=== PATIENT | male | born 1935 | race Caucasian/White ===

== ENCOUNTER 2022-02-17 17:38 | Observation (INO) | payer MEDICARE ==
[~2022-02-17] VITALS: Ht 172.7 cm; Wt 92.9 kg
[2022-02-18 10:19] LABS: U Amphetamine Screen Not Detected; U Barbituate Screen Not Detected; U Benzodiazapine Screen Not Detected; U Buprenorphine Screen Not Detected; U Cannabinoids Screen Not Detected; U Cocaine Screen Not Detected; U Methadone Screen Not Detected; U Methamphetamine Screen Not Detected; U Opiates Screen Not Detected; U Oxycodone Screen Not Detected; U Phencyclidine Screen Not Detected; U Propoxyphene Screen Not Detected
[2022-02-18 10:34] LABS: BASOPHILS ABSOLUTE AUTO 0.05 K/mm3 (0.00-0.23); BASOPHILS PERCENT AUTO 1 % (0-2); EOSINOPHILS ABSOLUTE AUTO 0.09 K/mm3 (0.00-0.68); EOSINOPHILS PERCENT AUTO 2 % (0-6); Hematocrit 46.6 % (37.0-53.0); Hemoglobin 15.8 g/dL (13.5-17.5); IMMATURE GRAN ABSOLUTE AUTO 0.01 K/mm3 (0.00-0.10); IMMATURE GRAN PERCENT AUTO 0 % (0-1); LYMPHOCYTES ABSOLUTE AUTO 2.21 K/mm3 (0.84-5.20); LYMPHOCYTES PERCENT AUTO 39 % (21-46); MONOCYTES ABSOLUTE AUTO 0.56 K/mm3 (0.16-1.47); MONOCYTES PERCENT AUTO 10 % (4-13); Mean Corpuscular HGB 29.1 pg (26.0-34.0); Mean Corpuscular HGB Conc 33.9 g/dL (31.5-36.5); Mean Corpuscular Volume 86 fL (80-100); Mean Platelet Volume 10.3 fL (9.1-12.4); NEUTROPHILS PERCENT AUTO 49 % (41-73); Platelet Count 222 K/mm3 (150-400); RDW Coefficient Variation 13.2 % (11.7-14.2); RDW Standard Deviation 40.6 fL (35.1-46.3); Red Blood Cell Count 5.43 M/mm3 (4.30-5.90); White Blood Cell Count 5.72 K/mm3 (4.00-11.30)
[2022-02-18 10:37] LABS: Influenza A, PCR NEGATIVE (NEGATIVE); Influenza B, PCR NEGATIVE (NEGATIVE); Resp Syncytial Virus, PCR NEGATIVE (NEGATIVE); SARS-Cov-2 (COVID-19) PCR, MMC NEGATIVE (NEGATIVE)
[2022-02-18 11:21] LABS: Ethanol (Alcohol), Blood, Med <3 mg/dL; Salicylate <1.7 mg/dL (2.8-20.0); Thyroid Stimulating Hormone 0.837 uIU/mL (0.360-4.800)
[2022-02-18 11:24] LABS: Acetaminophen, Random <2.0 ug/mL (10.0-30.0); Alanine Aminotransfer (ALT/SGP 25 U/L (12-78); Albumin, Blood 3.4 g/dL (3.4-5.0); Alk Phos 78 U/L (50-136); Anion Gap 8 mmol/L (6-16); Aspartate Aminotrans (AST/SGOT 23 U/L (12-37); Bilirubin, Total 0.6 mg/dL (0.1-1.0); Blood Urea Nitrogen 23 mg/dL (8-24); Bun/Creatinine Ratio 27.8 (12.0-20.0); CO2, Blood 25 mmol/L (21-32); Calcium, Blood 9.2 mg/dL (8.5-10.1); Chloride, Blood 108 mmol/L (98-108); Creatinine, Blood 0.83 mg/dL (0.60-1.20); Globulin, Blood 3.5 g/dL (2.2-4.0); Glomerular Filtration Rate 86 (60-); Glucose, Blood 110 mg/dL (70-99); Potassium, Blood 3.8 mmol/L (3.5-5.5); Sodium, Blood 141 mmol/L (136-145); Total Protein, Blood 6.9 g/dL (6.4-8.2)
--- NOTE | 2022-02-19 17:50 | NUR ---
[facility] CALLED WITH PHONE NUMBERS FOR EMERGENCY CONTACT INFORMATION THEY HAD ON FILE. FIORDALIZA (SON) [phone] DELILAH CANADA (FRIEND IN [place]) [phone] [facility] ALSO GAVE PHONE NUMBER FOR [facility] SUGGESTING THAT THEY MAY BE ABLE TO ASSIST IN FINDING [facility] FAC[facility] AND TRANSPORT TO THEIR LOCATION OR A [facility] FACILITY IN THEIR AREA. [phone] PHONE NUMBERS ALSO PLACED ON FRONT OF CHART.
--- NOTE | 2022-02-19 19:25 | NUR ---
SHIFT SUMMARY PATIENT ADMITTED FROM ER, MEDICALLY STABLE BUT FAMILY HAS ABANDONED PATIENT AT FACILITY. POLICE CAME TO SPEAK TO PATIENT AND ARE ASSISTING IN FINDING PLACEMENT FOR PATIENT APS IS CLOSED. PATIENT IS INDEPENDENT IN ROOM. ON RA. NOTED A WOUND ON TOP OF LEFT BIG TOE AND REDNESS TO TOPS OF TOES ON BOTH FEET. PATIENT HAS MILD DEMENTIA, ASKING SAME QUESTIONS MULTIPLE TIMES BUT AWARE OF WHAT IS GOING ON. REPORT GIVEN TO ONCOMING RN.
--- NOTE | 2022-02-20 03:00 | NUR ---
SHELL REPRINT OPERATOR SUMMARY WAS JOKING WITH STAFF AT SHIFT COMMENCE. DENIED PAIN AND LOSS OF FEELING. NOTE SOME APPARENT FORGETFULNESS, BUT ANSWERED QUESTIONS APPROPRIATELY. HAS BEEN RESTING QUIETLY WITHOUT NOTED DISTRESS THROUGH OUT SHIFT. CALL LIGHT IN REACH
--- NOTE | 2022-02-20 07:24 | NUR ---
ASSUMED CARE AT 0700. REPORT RECEIVED. CHART REVIEWED. PER RECORD, PATIENT MAY HAVE BEEN ABANDONED. CALL PLACED TO [facility]. PATIENT IS 100% SERVICE CONNECTED. HE IS NOT BEING CONSIDERED FOR INPATIENT PSYCH PLACEMENT AT THE [place]. PATIENTS SON [place] HAS PREVIOUSLY REFUSED TO BATCH MAKER PATIENT. CONTAT NUMBERS FOR HIM ARE NOTED TO BE [phone], . WILL CONT TO MONITOR.
--- NOTE | 2022-02-20 11:32 | NUR ---
CONVERSATION WITH PATIENT AT THE BEDSIDE. PATIENT STATES THAT HE IS "WORRIED" THAT HE "WILL HAVE TO LIVE IN PLACE I DONT WANT TO." HE STATES THAT HE LIVES IN A [address] WITH HIS SON EDGAR. EXPLAINED TO PATIENT THAT AT THIS TIME, EDGAR IS NOT RETURNING THE HOSPITALS CALLS. PATIENT INFORMED THAT HE IS NOT SICK AND DOES NOT NEED TO BE IN THE HOSPITAL. WE TALKED ABOUT THE POSSIBLE NEED TO MOVE INTO A HOME THAT WILL HAVE PEOPLE AVAILABLE IF HE NEEDS HELP. 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 ALSO THAT EDGAR PURCHASES HIM THINGS HE NEEDS SUCH SHOES. REVIEWED CONVERSATION WITH HOSPITALIST. SOCIAL WORK CONSULT PLACED. WILL ATTEMPT TO REACH EDGAR TODAY ALSO. WILL CONT TO MONITOR
--- NOTE | 2022-02-20 18:15 | NUR ---
SHIFT SUMMARY NO ACUTE CHANGES THIS SHIFT. PATIENT IS ALERT AND ORIENTED X2-3. HE IS VERY ANXIOUS ABOUT HIS FINANCES. HE IS INDEPENDENT IN HIS ROOM. PATIENT IS COOPERATIVE WITH CARE AND REQUESTS FROM NURSING STAFF. HE IS ABLE TO MAKE HIS NEEDS KNOWN. WILL CONT TO MONOTOR UNTIL REPORT GIVEN TO LEGAL NURSE CONSULTANT.
--- NOTE | 2022-02-21 04:18 | NUR ---
CEMENTER HELPER SUMMARY NO REPORTS OF VERTIGO. AFFECT AND INTERACTIONS WITH STAFF PLEASANT AND COOPERATIVE. VSS. HAS BEEN RESTING QUIETLY WITH FEW INTERRUPTIONS SINCE HS. CALL LIGHT IN REACH. AM NURSE SUGGESTED OT EVAL RE COGNITIVE SCREEN IN THE AM. WILL PASS THIS ON TO AM RN FOR FOLLOW UP.
--- NOTE | 2022-02-21 13:41 | NUR ---
SHIFT SUMMARY PT AWAKE AT START OF SHIFT, DURING SHIFT REPORT. UP INDEPENDENTLY IN RM AND TO BTHRM. PT LATER AMBULATING OUT TO FLANNERY AND SITTING IN CHAIR. PT IS A&O X2. PT WANTING TO GO HOME AND ALSO WANTING TO CALL MACHINE PULLER OVER THAT CAME TO VISIT HIM. PT REPORTS BEING HERE FOR 8 DAYS ALREADY, BUT JUST CAME IN 1 1/[address] GARCÍA HERE THIS AM TO SEE PT AND DISCUSS PLAN OF CARE, ACCOUNTING TUTOR ALSO NOTIFIED THAT PT WANTING TO GO HOME AND FIND HIS WALLET. ACCOUNTING TUTOR TO ATTEMPT TO CONTACT SON SOON. PT MEDICALLY STABLE, WAITING SAFE DISCHARGE PLANNING. CALL LT IN REACH.
--- NOTE | 2022-02-21 19:14 | NUR ---
AWAKE. USED CALL LIGHT FOR ASSISTANCE TO GO TO THE BATHROOM TO VOID. ACCOMPANIED TO AND FROM BR USING WALKER. CALL LIGHT IN REACH.
--- NOTE | 2022-02-22 03:43 | NUR ---
MARKETING COMMUNICATIONS LEADER SUMMARY AWAKE AT , AGREED TO USE CALL LIGHT IF NEEDING TO GET OUT OF BED. HE DID USE CALL LIGHT. NO FURTHER APPARENT EPISODES OF VERTIGO. USING WALKER WHEN OOB. HAS BEEN RESTING QUIETLY WITH FEW INTERRUPTIONS SINCE. CALL [facility] IN REACH. SCHEDULED TO BE DISCHARGED LATER IN THE AFTERNOON TODAY.
--- NOTE | 2022-02-22 13:42 | NUR ---
SHIFT SUMMARY PT RESTING QUIETLY AT START OF SHIFT. UP TO BTHRM USING FWW AND SBA BEFORE BREAKFAST. PT THEN UP TO CHAIR FOR A WHILE, WAITING FOR SON TO COME IN OR CALL. PT LATER TOOK A NAP. WOKE FOR LUNCH, BUT DECLINED TO EAT. PT REPORTED "SOUR STOMACH"; DR GARCÍA NOTIFIED FOR TUMS. PT REPORTED THEM EFFECTIVE. PT IS ANXIOUSLY WAITING FOR SON TO CALL OR COME IN TO PICK HIM UP AND TAKE HIM HOME. PT IS MEDICALLY STABLE, JUST WAITING FOR D/C. DAVIDSON FROM [facility]PS CALLED THIS AM TO F/U ON ABANDONMENT REPORT. DAVIDSON TO CALL SON FOR INFORMATION. PT DENIES FURTHER NEEDS AT THIS TIME. CALL LT IN REACH.
[2022-02-22] MEDS ORDERED: Acetaminophen650 M1 PO (16:40)
[2022-02-22] MEDS ORDERED: Prinivil10 MG PO (16:41)
[2022-02-22] MEDS ORDERED: Calcium Carbon500 MG PO (16:41)
--- NOTE | 2022-02-22 21:49 | NUR ---
DARCY GUERRERO, VOICED CONCERNS THAT HIS SON IS TAKING HIS MONEY AND WANTS TO MOVE "TO [place]" SO HE COULD BE FAR ENOUGH AWAY FROM HIM TO BE ABLE TO KEEP THEM . I EXPLAINED THAT I WOULD ASK AM RN/STAFF TO SPEAK WITH HIM RE HIS REQUESTS SO THEY COULD GET HIS INPUT FOR DISCHARGE. CALL LIGHT IN REACH
--- NOTE | 2022-02-23 03:37 | NUR ---
NEGATIVE DEVELOPER SUMMARY WAS SCHEDULED TO BE DISCHARGED YESTERDAY, BUT EVIDENTLY ACCORDING TO AM RN, THE RIDE DIDNT SHOW UP. (ORDERS FOR DC IN CHART). ON Q SHIFT ASSESSMENT OF PT, HE VOICED THAT HE DIDNT WANT TO BE DISCHARGED TO HIS SON, THAT HE FELT HIS SON WAS TAKING MONEY FROM HIM AND HE WANTED TO MOVE TO [place] WHEN DISCHARGED, THAT HE COULD BE FAR ENOUGH AWAY FROM HIM SO HE WOULDNT HAVE THE POSSIBILITY OF RUNNING INTO HIM AFTER THAT. CHARGE NURSE NOTIFIED AND NOTE PLACED FOR DC TEAM TO FOLLOW UP WITH HIM. HAS BEEN RESTING QUIETLY WITH FEW INTERRUPTIONS SINCE. CALL LIGHT IN REACH. NO EPISODES OF VERTIGO REPORTED.
--- NOTE | 2022-02-23 15:58 | NUR ---
PT IS ALERT, PLEASANTLY CONFUSED, ORIENTED TO SELF AND SURROUNDINGS. THE PT IS UP WITH ASSIST USEING THE FWW. THE PT DENIED ANY PAIN. THE PT WAS ASSISTED WITH AMBULATION IN THE FLANNERY TODAY. PT APPEARS TO BE BREATHING EASILY ON RA AT THIS TIME. ADULT FAMILY PROTECION SERVICES AGENT WAS IN TO SEE AND SPOKE WITH THE PATIENT. PT IS UP SITTING IN A CHAIR IN THE HALLWAY AT THIS TIME. WILL CONTIUE TO MONITOR AND ASSESS FOR CHANGES
--- NOTE | 2022-02-24 03:59 | NUR ---
SHIFT SUMMARY PT COOPERATIVE AND PLEASANT. PT SLEEPING THROUGH MOST OF THE NIGHT. NO ACUTE CHANGES TO PT CONDITION AND NO COMPLAINTS FROM PT AT THIS TIME. CALL LIGHT IS WITHIN PT REACH.
--- NOTE | 2022-02-24 16:55 | NUR ---
PT IS A/OX3, PLEASANT AND COOPERATIVE. THE PT IS UP WITH MINIMAL ASSIST TO THE BATHROOM AND OUT INTO THE FLANNERY. THE PT HAS BEEN UP AMBULATING INTO THE FLANNERY SEVERAL TIMES TODAY. PT APPEARS TO BE BREATHING EASILY ON RA. PT IS CAREFULL WHEN GETTING UP AND KNOWS HIS LIMITS. THE PT IS CONCERNED ABOUT HIS LENGTHY STAY AT THE HOSPITAL SO FAR AND HAS STATED THAT HE FEELS LIKE HE IS IN ALF AND MAY WELL KILL HIMSELF, HOWEVER, AFTER TALKING WITH HIM HE ALSO STATES THAT HE HAS NO SUICIDAL THOUGHTS WELL. THE PTS FAMILY HAS NOT MADE CONTACT WITH HIM TODAY. THE PT IS UP IN THE CHAIR OUT IN THE FLANNERY AT THIS TIME. WILL CONTINUE TO MONITOR AND ASSESS FOR CHANGES
--- NOTE | 2022-02-24 19:45 | NUR ---
REPORT FROM DAY SHIFT IS PT HAS A POOR APPETITE, HOWEVER RIKA GURROLA REPORTED PT HAD AN ENSURE TODAY (NOT CHARTED.) PT REPORTS ABDOMINAL DISCOMFORT - REPORTS NO REQUEST FOR MEDICATIONS, OR WANTING ANY PO FLUIDS/FOOD AT THIS TIME. BT'S ACTIVE X4. WILL CONTINUE TO MONITOR UNTIL AM SHIFT CHANGE.
--- NOTE | 2022-02-24 23:00 | NUR ---
PT REPORTS RELIEF OF INDIGESTION, ABDOMINAL DISCOMFORT - PT CONTINUES TO DECLINE PO FLUIDS/FOOD.
--- NOTE | 2022-02-25 01:10 | NUR ---
PT NEEDS 1 PERSON ASSIST FROM SIT TO STAND WITH WALKER, BUT AMBULATES WELL ONCE STANDING. PT TO BRP WITH WALKER AND SBA.
--- NOTE | 2022-02-25 04:16 | NUR ---
SHIFT SUMMARY - NO ACUTE CHANGES THROUGHOUT THIS SHIFT. PT DECLINED PO INTAKE OFFERRED THROUGHOUT THE NIGHT. PT MEDICATED X1 WITH TUMS - PT REPORTED RELIEF OF INDIGESTION/ABDOMINAL DISCOMFORT AFTER TUMS GIVEN. WILL REPORT THIS ABOVE INFORMATION TO ONCOMING SHIFT - DUE TO POOR PO INTAKE. PT HAS BEEN APPROPRIATE IN HIS BEHAVIOR WITH STAFF. PT IS STEADY WITH A WALKER. PT NEEDS ASSISTANCE FROM SITTING IN BED TO STANDING, BUT IS ABLE TO STAND INDEPENDENTLY FROM BRP TO STANDING WITH USE OF THE WALKER. PT HAS BEEN PLEASANT AND COOPERATIVE WITH CARE. BED ALARM ON FOR SAFETY. FLUIDS AT BEDSIDE. CALL LIGHT WITHIN REACH. WILL CONTINUE TO MONITOR UNTIL AM SHIFT.
--- NOTE | 2022-02-25 16:27 | NUR ---
SHIFT SUMMARY- PT ALERT AND ORIENTED X2. PT IS A 1PA TO THE BATHROOM. NO IV ACCESS OORDR IN PLACE, AL VSS. PT JUST AWAITING PLACEMENT. PT IN BED, CALL LIGHT IN REACH, NO S&S OF DISTRESS NOTED, NO ACUTE CHANGS T/O THE SHIFT. ATTENDS IN PLACE FOR OCCASSIONAL INCONTINENCE. WILL CTM AND PASS ON TO NIGHT RN IN BEDSIDE REPORT. BED AND CHAIR ALARM ON FOR SAFETY.
--- NOTE | 2022-02-26 05:11 | NUR ---
SHIFT SUMMARY PATEINT ALERT AND ORIENTED X2-3. MEDICATED PER EMAR FOR HEADACHE. PATIENT REMAINS FORGETFUL AND IS NOT APPROPRIATE WITH USE OF CALL LIGHT. NO ACUTE ISSUES NOTED OVERNIGHT. BED IN LOWEST POSITION WITH WHEELS LOCKED AND ALARM ON. CALL LIGHT WITHIN REACH. REPORT GIVEN TO ONCOMING RN.
--- NOTE | 2022-02-26 17:20 | NUR ---
SHIFT SUMMARY- PT HAS HAD NO ACUTE CHANGES T/O THE SHIFT. MEDICATED THIS MORNING FOR A HEADACHE THAT SEEMS TO HAVE RESOLVED. PT HAS DENIED PAIN SINCE THEN. PT IS A 1PA TO THE BATHROOM FOR STABILITY AND SAFETY. NO S&S OF DISTRESS AT THIS TIME. WILL CTM AND PASS ON TO NIGHT RN IN BEDSIDE REPORT.
--- NOTE | 2022-02-27 05:57 | NUR ---
SHIFT SUMMARY PATIENT IS ALERT AND ORIENTED X2-3. HAD NO COMPLAINTS OF PAIN OR SHORTNESS OF BREATH. NO ACUTE ISSUES NOTED OVERNIGHT. CALL LIGHT WITHIN REACH. REPORT GIVEN TO ONCOMING RN.
--- NOTE | 2022-02-27 17:01 | NUR ---
SHIFT SUMMARY- PT HAS HAD NO ACUTE CHANGES T/O THE SHIFT. PT STILL AWAITING DISCHARGE PLACEMENT. PT HAD A FULL SHOWER TODAY, AND CONTINUES TO HAVE OCCASSIONAL INCONTINENCE ISSUES. PT IS IMPULSIVE AND FORGETS TO CALL FOR ASSISTANCE (ALTHOUGH HE HAS IMPROVED OVER TE PAST THREE DAYS, HE DOES OCCASSIONALLY CALL), BED AND CHAIR ALARMS ARE STILL BEING USED FOR PT SAFETY. PT CURRENTLY IN BED, RIGO LIGHT IN REACH NO S&S OF DISTRESS. WILL CTM AND PASS ON TO NIGHT RN IN BEDSIDE REPORT.
--- NOTE | 2022-02-28 06:11 | NUR ---
SHIFT SUMMARY PATIENT ALERT AND ORIENTED X3. HAD NO COMPLAINTS OF PAIN OR SHORTNESS OF BREATH. NO ACUTE ISSUES NOTED OVERNIGHT. CALL LIGHT WITHIN REACH. REPORT GIVEN TO ONCOMING RN.
--- NOTE | 2022-02-28 16:51 | NUR ---
DAY SHIFT SUMMARY 86 YR OLD MALE PT WITH AMS, TLINGIT & HAIDA, WAITING FOR PLACEMENT. BED ALARM ON, ABLE TO USE URINAL INDEPENDENTLY, STANDBY ASSIST WITH WALKER TO BATHROOM. ABLE TO TAKE MEDS WHOLE, RA, NO IV. NO ACUTE CHANGES THIS SHIFT. CALL LIGHT WITHIN REACH.
--- NOTE | 2022-03-01 04:04 | NUR ---
SHIFT SUMMARY A/O 2-3, 1P ASSIST WITH FWW TO BATHROOM. IMPULSIVE AT TIMES, EASILY REDIRECTED. C/O PAIN TO L. HIP, MEDICATED PER EMAR. DENIES SOB. SLEPT T/O THE NIGHT. VSS, NO ACUTE CHANGES AT THIS TIME. BED IN LOWEST POSITION WITH CALL LIGHT IN REACH. WILL CONTINUE TO MONITOR AND REPORT TO ONCOMING RN.
--- NOTE | 2022-03-01 16:55 | NUR ---
DAY SHIFT SUMMARY 86 YR OLD MALE PT WITH AMS AND DEMENTIA. FIXATED TODAY ON HIS CHECK GOING INTO THE WRONG ACCOUNT AT START OF MONTH. PT HAS CARD FOR [employer] NUMBER TO CALL. WILL RELAY MESSAGE FOR TOMORROW'S NURSE TO HELP PT CALL EARLIER IN DAY. NO ACUTE CHANGES THIS SHIFT. FALL RISK, RA, MEDS WHOLE, CONTINENT, BED ALARM. CALL LIGHT WITHIN USE AND PT ABLE TO USE.
--- NOTE | 2022-03-02 04:08 | NUR ---
SHIFT SUMMARY ADMITTED FOR AMS. FULL CODE. PLAN IS FOR PLACEMENT. PT IS IMPULSIVE AND EXITS THE BED FREQUENTLY. BED ALARM ACTIVE. CALL BUTTON WITHIN REACH. HX OF FALLS. 1 ASSIST W/FWW-BRP. [facility] SOFT/GRND MEAT DIET. ON RA.
--- NOTE | 2022-03-02 18:07 | NUR ---
SUMMARY- PT A/O X3, PLEASANTLY CONFUSED. FORGETFUL. USING BED AND CHAIR ALARM. AMBULATES TO BATHROOM TO VOID. TOLERATING FOOD AND FLUID. GETS UP IN THE CHAIR FOR MEALS. NO BM DINVR 02/26, MEDICATED SENAKOT AND MOM. NO VIOLENCE TOWARDS STAFF TODAY. WILL REPORT TO NOC RN
--- NOTE | 2022-03-03 04:04 | NUR ---
SHIFT SUMMARY: PATIENT IS A&O TO SELF AND PLACE. CALLING APPROPRIATELY FOR ASSIST OOB. VSS, REPORTING HEADACHE, TYLENOL WAS GIVEN WITH FAIR EFFECT. BED ALARM IS ON.
--- NOTE | 2022-03-03 16:24 | NUR ---
SUMMARY- PT ALERT TO SELF AND PLACE. ABLE TO GET UP SBA TO CHAIR AND BATHROOM SBA. FREQ SETS OFF BED ALARM AND CHAIR ALARM GETTING UP WITHOUT USING CALL LIGHT DESPITE FREQ REMINDERS. HAD LG SOFT BM TODAY AFTER LAXATIVES THIS AM. MEDICALLY STABLE AND PENDING PROPER PLACEMENT. CONSULT DR CHEUNG FOR EMERGENCY GAURDIANSHIP. PT HAS DELUSIONS THAT STEP SON AMERICA IS STEALING MONEY FROM HIS BANK. PHLEBOTOMY INSTRUCTOR LIESTH STATES AMARI FROM ADULT PROTECTIVE SERVICE IS FULLY AWARE OF HIS CONCERNS AND ALL IS UNFOUNDED, HIS STEP SON IS NOT STEALING MONEY FROM HIM. SPOKE TO PT AND ASSURED HIM HIS MONEY IS SECURE.
--- NOTE | 2022-03-04 05:04 | NUR ---
SHIFT SUMMARY: PATIENT IS A&O TO SELF AND SURROUNDINGS. VSS, NO REPORTS OF PAIN OR DISCOMFORT. GOOD APPETITE, SLEPT WELL AND IS INC. AT TIMES BUT ALSO USES URINAL INDEPENDANTLY. BED ALARM IS ON.
--- NOTE | 2022-03-04 10:54 | NUR ---
PT PLEASANT THIS AM. VERY [place]. A/O TO SELF, TALKATIVE. 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 LOVED THAT JOB. ALSO WAS IN . THANKED HIM FOR HIS SERVICE. DENIES PAIN. H/R REG, NO MURMUR NOTED. NO TELE. LUNGS CLEAR, RESP EASY, UNLABORED. ON R.A. BT X4 LAST BM YEST PER PT. VOIDS URINAL. SBA WITH FWW TO BATHROOM. BED IN LOW POSITION, CALL LITE IN REACH, BED ALARNM ON FOR SAFETY. PT HERE WITH AMS AND PLACEMENT.
--- NOTE | 2022-03-04 15:26 | NUR ---
PT B/P ELVATED 170/82 P 71. HE STATES NO PAIN. HOWEVER STATES STILL SOME ANX OVER MONEY ISSUES. STATES BETTER THIS AFT AFTER TALKING TO YIMI ROD GUARDIANSHIP. CALLED RASHAWN DORSEY IN HALF HOUR, CALL IF STILL ELEVATED.
--- NOTE | 2022-03-04 15:57 | NUR ---
YIMI NASH, GUARDIAN, STOPPED BY TO INTERVIEW PT. SHE REQUESTING PAPER FROM DR MCKEON STATING NEED. SPOKE TO DR MCKEON, HE TO SEE PT TODAY AND WILL CONTACT HER NEED.
--- NOTE | 2022-03-04 16:18 | NUR ---
PT BP ELEVATED STILL. 185/[address] STILL. ADVISED HAS BEEN URINATING TODAY. AT LEST 4-5 TIMES. SHE REQUESTED BLADDER SCAN. ALSO ORDRS FOR HYDRALAZINE 10 MG PO Q6P. DONE
--- NOTE | 2022-03-04 16:22 | NUR ---
BLADDER SCAN. POST VOID 125 CC
--- NOTE | 2022-03-04 18:49 | NUR ---
AIR CHIEF MARSHAL CONSULT. ORDERED BY DR MCKEON. I CALLED CARE MANAGEMENT AND LEFT MS REQUEST TO FOLLOW.
--- NOTE | 2022-03-04 19:14 | NUR ---
PT HAD SOME HYPERTENSION THIS AFT. DR WAS CALLED AND HYDRAL ADMIN. PT BP RESOLVED. PT ALSO HAD HEADACHE THIS ALEXIS TYLENOL ADMIN. PT HAD VISITOR FOR GUARDIANSHIP ASSISTANCE THIS AM. HE PLEASED ABOUT THIS. NO NEWCONCERNS NOTED . BED IN LOW POSITION, CALL LITE IN REACH, CALLS APPROP
--- NOTE | 2022-03-05 04:26 | NUR ---
SHIFT SUMMARY 86 YR M ADMITTED ON 02/17/22 FOR AMS. FULL CODE. NO ACUTE CHANGES THIS SHIFT. PT IS VERY PLEASANT AND COOPERATIVE WITH CARE. HE IS VERY HARD OF HEARING BUT HE LIKES TO JOKE AROUND. WE HAD SOME LAUGHS THIS SHIFT. HE C/O FORRESTER AT APPROX 0230 AND WAS GIVEN TYLENOL PER EMAR. AWAITING PLACEMENT.
--- NOTE | 2022-03-05 09:51 | NUR ---
PT QUITE PLEASANT TODAY. DENIES PAIN. STATES PERSON HERE YEST THAT IS HELPING HIM WITH FINANCES GREATLY HELPED HIS MOOD. UNABLE TO ANSWER DETAIL QUEESTIONS. HOWEVER ABLE TO TELL ME YR, , FAMILY. AND HIS JOB. H/R REG, NO MURMUR NOTED. NO TELE. LUNGS CLEAR RESP EASY, UNLABORED, ON R.A. BT X4 LAST BM YEST, VOIDS URINAL AND SBA WITH FWW TO BATHROOM. BED IN LOW POSITION, CALL LITE IN REACH. BED ALARM ON FOR SAFETY
--- NOTE | 2022-03-05 17:40 | NUR ---
PT QUITE PLEASANT TODAY. NO C/O PAIN. CONTINUES TO BE UNABLE TO ANSWER DETAILED QUESTIONS. GENERAL QUESTIONS ARE PRETTY GOOD. EXPECTING TO HAVE NEW HELPER, YIMI?, BRING HIM HIS BIBLE. NO OTHER CONCERNS NOTED. BED IN LOW POSITION,, CALL LITE IN REACH. BED ALARM ON FOR SAFETY
--- NOTE | 2022-03-06 04:49 | NUR ---
SHIFT SUMMARY 86 YR M ADMITTED ON 02/17/22 FOR AMS. FULL CODE. NO ACUTE CHANGES THIS SHIFT. PT IS VERY PLEASANT AND COOPERATIVE BUT IS IMPULSIVE. HE DOES NOT USE THE CALL LIGHT BEFORE GETTING OUT OF BED TO USE THE RESTROOM, HOWEVER, HE IS FAIRLY STEADY ON HIS FEET. HIS MOOD HAS BEEN GOOD AND HE IS VERY FRIENDLY. THERE HAVE BEEN SO ISSUES WITH THIS PT THIS SHIFT.
--- NOTE | 2022-03-06 07:30 | NUR ---
ASSUMED CARE: PT AWAKE, INTERACTING WITH STAFF DURING BEDSIDE REPORT. INAJA, COOPERATIVE. C/O BURNING IN RIGHT FOOT. NO VISIBLE SIGN OF REDNESS OR SWELLING. NO OTHER NEEDS AT THIS TIME.
--- NOTE | 2022-03-06 17:34 | NUR ---
SHIFT SUMMARY: PT HAS BEEN PLEASANT AND COOPERATIVE T/O DAY. NO PRNS REQUIRED. OR FURTHER CONCERNS. AWAITING PLACEMENT
--- NOTE | 2022-03-07 04:41 | NUR ---
PT SLEPT MOST OF THE NIGHT. UP AND DOWN TO VOID. PT AGGITATED AT START OF SHIFT AMD UNSTEADY ON FEET. VSS, NO PRNS GIVEN.
--- NOTE | 2022-03-07 17:21 | NUR ---
Shift has been unremarkable. Patient transfers well with one person standby assist. Patient has not had any complaints today and has been pleasant. Left call light within reach.
--- NOTE | 2022-03-08 04:58 | NUR ---
PT SLEPT THROUGHT THE NIGHT, VSS. NO ACUTE CHANGES.
--- NOTE | 2022-03-08 17:34 | NUR ---
Shift largely unremarkable. Patient has been in agreeable mood and has been pleasant to interact with. Patient gets somewhat agitated to have assistance with transfer as he "wants to show that he can walk on his own so that he can get out of here sooner" but is cooperative with commands. Call light left within reach.
--- NOTE | 2022-03-09 05:10 | NUR ---
PT WAS PLEASENT AND COOPERATIVE ALL NIGHT, STABLE ON FEET USING 4WW. VSS, NO PRNS GIVEN.
--- NOTE | 2022-03-09 13:07 | NUR ---
SIGN MAKER REPORTS PT PLAN TO STOP EATING STARTING TOMORROW UNTIL HIS KIDS GET HIM OUT OF HERE. HE DOES NOT INTEND TO CAUSE SELF HARM, BUT BELIEVES THIS WILL COAX HIS SON TO HELP HIM AND SHOW HIM SOME LOVE.
--- NOTE | 2022-03-09 18:05 | NUR ---
SHIFT SUMMARY PT A&OX3-4 AND IN PLEASENT MOOD T/O SHIFT. PT RECEIVED PHONE CALL TODAY IN ROOM, PT REQUESTING FOR THEM TO COME BACK AND PICK HIM UP. TOLERATING PO INTAKE WELL, AMB SBA/IND IN ROOM W/ STEADY GAIT. CALL LIGHT W/IN REACH. VSS. AWAITING GAURDIANSHIP FOR PLACEMENT @ THIS TIME.
--- NOTE | 2022-03-10 03:54 | NUR ---
ON 03/10/22 @ 0315, PT AMBULATED TO BATHROOM SUPERVISION. WHILE IN THE BATHROOM, PT BLANKED OUT. HIS EYES WERE OPEN AND PT UNABLE TO FOLLOW VERBAL DIRECTIONS. PT APPEARED LOST IN THOUGHT COULD NOT REGISTER WHAT WAS HAPPENING. PT ALSO HAD A LARGE BM WHILE STANDING. PT UNABLE TO LIFT UP LOWER EXTREMITIES COMPLETELY OFF THE FLOOR WHEN WALKING TO CHAIR. PT SAT DOWN. V/S WNL. PT FULLY RECOVERED AND ASSISTED BACK TO BED WITH FWW & GB. PT THEN STOOD UP NEXT TO BED AND THIS HAPPENED AGAIN. PT HAD ANOTHER BM. PT CLEANED AT CHANGED. AT 0340, PROVIDER NOTIFIED OF CHANGE IN STATUS. DR. MURRY ORDERED " WATCH HIM TILL MORNING"
--- NOTE | 2022-03-10 04:34 | NUR ---
A&OX4. V/S WNL. MECHANICAL SOFT DIET. PILLS WHOLE WITH WATER. NO IV ACCESS. AMBULATES INDEPENDENTLY,; SUPERVISION. PT HAD A CHANGE IN HIS STATUS. PROVIDER AWARE. REFER TO NURSE'S NOTE FOR DETAILS. YOCHA DEHE. PRN PO HYDRALAZINE GIVEN FOR HTN PER EMAR. VOIDS W/O DIFFICULTY. INCONTINENT OF URINE AND BOWEL THIS SHIFT. 2 LARGE NORMAL BM'S. PULL-UP IN PLACE. WILL CONTINUE TO MONITOR.
--- NOTE | 2022-03-10 09:51 | NUR ---
DR. WHEATLEY NOTIFIED OF PT REQUEST TO SEE PODIATRY DUE TO WHITE BUMPS W/ REDDENED AREA ON JOINTS OF LLE TOES
--- NOTE | 2022-03-10 13:13 | NUR ---
PT C/O OF ONGOING FOOT PAIN 10/10 IN RLE TOES, JOINTS ON FOOT APPEAR RED. PT MEDICATED W/ TYLENOL.
--- NOTE | 2022-03-10 15:53 | NUR ---
DR. WHEATLEY IN TO SEE PT FOOT. BELIEVES PT IS SUFFERING FROM A "CORN," PLAN TO REDUCE PRESSURE TO AFFECTED AREA AND APPLY BARRIER CREAM.
--- NOTE | 2022-03-10 17:14 | NUR ---
SHIFT SUMMARY PT A&O X 3-4 AND IN PLEASENT MOOD T/O SHIFT. BED ALARM IN PLACE, UP SEVERAL TIMES T/O SHIFT W/ OUT CALLING-HX OF MULT. FALLS. TOLERATING PO INTAKE WELL. PAIN MEDICATED PER EMAR. CALL LIGHT W/IN REACH. VSS. AWAITING GABRODIANSHIP @ THIS TIME.
--- NOTE | 2022-03-11 04:22 | NUR ---
A&OX4. FORGETFUL AT TIMES. V/S WNL. SBA. NO IV ACCESS. MECHANICAL SOFT. PILLS WHOLE WITH WATER. BED ALARM ON/VIDEO. VOIDS W/O DIFFICULTY. NO BM THIS SHIFT. DRIBBLES; BRIEFS IN PLACE. WILL CONTNUE TO MONITOR.
--- NOTE | 2022-03-11 17:37 | NUR ---
Shift Summary A/Ox3, a little forgetful and extremely [place]. Patient read lips. States his hearing aids are with his son. Up with 1p SBA, can be unsteady on feet at times. Pleasant, cooperative. Good appetite. Denies pain. Guardianship paper in chart. Overall good day.
--- NOTE | 2022-03-12 04:41 | NUR ---
A&0X4. FORGETFUL AT TIMES. V/S WNL. SBA. BED ALARM ON/ON VIDEO. NO IV ACCESS. VOIDS W/O DIFFICULTY. DRIBLES. BRIEFS IN PLACE. NO BM THIS SHIFT. MECHANICAL SOFT DIET. SWALLOW PILLS WHOLE. FC. WILL CONTINUE TO MONITOR.
--- NOTE | 2022-03-12 16:56 | NUR ---
SHIFT SUMMARY PT A&O X 4. IS [place]. JOSES. PT IS AGREEABLE TO CALLING RN/FURNITURE SALES CONSULTANT FOR HELP WHEN GETTING UP. HE C/O HIS FEET & TOES BEING PAINFUL. HE HAS BUMPS ON BILAT GREAT TOES. SOME OF HIS TOE NAILS HAVE GROWN OUT AND HAVE CURLED OVER & INTO THE TIPS OF HIS TOES CAUSING SOME OF HIS PAIN. HAVE PT SITTING UP IN RECLINER WITH FEET ELEVATED TO HELP RELIEVE PAIN. APPLIED CREAM TO HIS TOES ORDERED PER MD. OVERALL HIS MENTATION HAS CLEARED AND HE HAS BECOME MORE STEADY ON HIS FEET.
--- NOTE | 2022-03-13 05:09 | NUR ---
A&OX4.FORGETFUL AT TIMES. V/S WNL. SBA. NO IV ACCESS. VOIDS W/O DIFFICULTY. NO BM THIS SHIFT. BED ALARM ON/ON VIDEO AT ALL TIMES. MECHANICAL SOFT DIET. PILLS WHOLE WITH WATER. FC. WILL CONTINUE TO MONITOR.
--- NOTE | 2022-03-13 16:58 | NUR ---
SHIFT SUMMARY A&O X 4. FORGRTFUL AT TIMES. VSS. IV ACCESS NOT NEEDED, SO NO IV. IS 1 PERSON STDBY ASSIST TO RESTROOM AND VOIDS WITHOUT DIFFICULTY. HAD SMALL/MEDIUM BM TODAY. BED & CHAIR ALARM ON, PT ON VIDEO/CAMERA AT ALL TIMES. MECHANICAL SOFT DIET, APPETITE IS GOOD. TAKES ALL PILLS WHOLE WITH H2O. CONTNUING TO WAIT ON POSSIBLE PLACEMENT IN SNF/[facility]ORY [facility]ARE FACILTY.
--- NOTE | 2022-03-14 18:45 | NUR ---
CALL FROM SON: SPOKE WITH THE PATIENT'S SON DOMENICO ARORA JR. HE REPORTS THAT HE WOULD LIKE TO BE ABLE TO SPEAK WITH THE PHARMACY CLINICAL COORDINATOR ABOUT THE PLAN OF CARE AND DISCHARGE PLAN FOR HIS FATHER. HE ALSO REPORTS THAT THEY HAVE A COMPLICATED HISTORY AND HAVE NOT SPOKEN FOR ABOUT 10 YEARS. HIS PHONE NUMBER IS [phone]. HE IS CURRENTLY IN [place]. INFORMATION TO BE PASSED ON TO NIGHT RN.
--- NOTE | 2022-03-14 19:50 | NUR ---
END OF SHIFT SUMMARY: PATIENT DENIED PAIN OR DISCOMFORT THROUGHOUT THE SHIFT. PATIENT IRRITABLE AT TIMES IN REGARDS TO FALL PREVENTION MEASURES (HAVING STAFF ON HAND WHEN HE IS AMBULATING IN THE ROOM) AND HIS EXTENDED STAY IN THE HOSPITAL. OVERALL, PATIENT CALM AND COOPERATIVE. PATIENT REPORTED TO RN THAT HIS STEPSON EDGAR WAS TAKING CARE OF HIM AT HIS TRAILER AND THAT IT IS THE MEEK'S WHO IS CAUSING PROBLEMS. RELAYED THIS TO CARE MANAGEMENT. PATIENT'S SON CHELSEY WYATT CALLED. SEE NURSE'S NOTE. INFORMATION RELAYED TO NIGHT RN.
--- NOTE | 2022-03-15 17:33 | NUR ---
END OF SHIFT SUMMARY: PATIENT DENIED PAIN THROUGHOUT THE SHIFT. PATIENT HAD MOMENTS OF IRRITATION, TEARFULNESS AND SADNESS IN REGARDS TO HIS CURRENT SITUATION. PATIENT IS FEELING ENCOURAGED AND OPTIMISTIC AFTER THE VISIT FROM THE POTENTIAL GUARDIAN AND COURT DIGITAL PRINTER. PATIENT STEADY ON HIS FEET TODAY AND CONTINUES TO BE RESISTANT TO SAFETY PRECAUTIONS FOR FALL PREVENTION. OTHERWISE CALM, COOPERATIVE AND APPRECIATIVE OF CARE.
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
--- NOTE | 2022-03-16 17:18 | NUR ---
SHIFT SUMMARY PT SHOWERED THIS AM. AMBULATING WELL IN ROOM WITH SBA. PT REFUSES TO USE A GAITBELT OR WALKER HOWEVER. OTHERWISE COOPERATIVE WITH CARE. RESTING IN BED MOST THE DAY. UP TO CHAIR FOR MEALS. PT UPDATED THAT HE WILL LIKELY NOT BE LEAVING FOR A FEW MORE DAYS PER THE HOME HEALTH CLINICAL LIAISON. PT UPSET BY THIS, BUT UNDERSTANDS. NO OTHER ACUTE CHANGES IN ASSESSMENT AT THIS TIME. VS REVIEWED. CALL LIGHT IN REACH. PT DENIES NEEDS AT THIS TIME.
--- NOTE | 2022-03-17 04:46 | NUR ---
SHIFT SUMMARY NO ACUTE CHANGES OVERNIGHT. PT GETS UP EVERY COUPLE HOURS TO VOID IN THE BATHROOM. DOESN'T USE THE CALL LIGHT, BED ALARM ON. CAMERA ON. RN NOTIFIED WHEN PT ATTEMPTING TO GET OUT OF BED. AMBULATES 1 PERSON ASSIST WITH FWW AND GB BUT PT REFUSE TO USE GB AND FWW. 1 SBA. PT HAS BEEN STEADY ON HIS FEET. AOX3-4. VSS. DENIES CP AND SOB. PT ON ROOM AIR. TOLERATING PO INTAKE DENIES N/V. PT PLEASANT AND COOPERATIVE WITH CARE. CALL LIGHT WITHIN REACH. WILL NOTIFY ONCOMING NURSE FOR AN UPDATE.
--- NOTE | 2022-03-17 17:44 | NUR ---
PATIENT IS ALERT AND ORIENTED. HE IS NOT ORIENTED OF HIS OWN ABILITY AT TIMES. ON RA. C/O ITCHYNESS ON LEFT SHOULDER BUT NO DISCOLORATION NOTED. PATIENT IS PLEASANT. WILL CONTINUE TO MONITOR
--- NOTE | 2022-03-18 05:14 | NUR ---
SHIFT SUMMARY AOX3-SELF, TOWN, MONTH, FOLLOWING DIRECTIONS. FORGETFUL OF BEING AT HOSPITAL, EXACT DATE OR WHY IN HOSPITAL/SITUATION. NIGHT PROGRESSED PT HAD INCREASED CONFUSION/IMPULSIVENESS FORGETING TO USE CALL LIGHT & SETTING OFF BED ALARM TO "TURN BATHROOM LIGHT OFF" NEEDED FREQUENT REMINDING LIGHT WAS ON FOR SAFETY & ABILITY TO SEE PT. ALSO PT REPORTS HAVING A HORRIBLE NIGHT BECAUSE HE WAS "THROWING UP," HOWEVER DROP WIRE STRINGER & MYSELF NEVER WITNESSED OR HEARD ANY EMESIS. PT DID REPORT HEADACHE, MEDICATED 1X c TYLENOL & WAS ABLE TO REST SOUNDLY AFTER. ALSO REPORTED DIZZINESS 1X, BUT HASNT SINCE BEGINNING OF SHIFT. VSS. CALL LIGHT & BED ALARM IN PLACE.
--- NOTE | 2022-03-18 16:51 | NUR ---
PATIENT IS ALERT AND ORIENTED. HE IS IMPULSIVE AND WILL GET OOB ON HIS OWN. C/O ITCHING ON HIS LOW BACK, MEDICATED PER EMAR. WILL CONTINUE TO MONITOR
--- NOTE | 2022-03-19 04:43 | NUR ---
SHIFT SUMMARY NO ACUTE CHANGES THIS SHIFT. VSS. REPORTS MILD PAIN L UPPER & LOWER BACK, NO BRUISING OR ABRASION NOTED, PT DENIED NEED FOR TYLENOL. AOX3-SELF, TOWN, FOLLOWING DIRECIONS, FAMILY. FORGETFUL. UNAWARE AT HOSPITAL OR REASON. IMPULSIVE @TIMES. BED ALARM IN PLACE FOR SAFETY. CALL LIGHT IN REACH.
--- NOTE | 2022-03-19 18:02 | NUR ---
PATIENT IS WORRIED ABOUT THE RELATIONSHIP WITH HIS FAMILY. HE IS QUESTIONING IF HE SHOULD GIVE THEM ANOTHER CHANCE, BECAUSE HE NEEDS TO MEND RELATIONSHIPS LIKE "GOD" WOULD WANT HIM TO DO. PATIENT DID NOT HAVE MEDICAL COMPLAINTS TODAY, OTHER THAN AN ITCHY BACK. LOTION WAS APPLIED. VSS. PATIENT USES THE URINAL AND REQUESTS HELP IF HE WANTS TO GET OUT OF BED. HE HAS TRACE EDEMA IN LOWER EXTREMITIES. HE HAS BEEN ALERT AND ORIENTATED, COOPERATIVE WITH ALL CARES.
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
--- NOTE | 2022-03-20 04:59 | NUR ---
SHIFT SUMMARY AOX3-FORGETFUL SITUATION AND HOSPITAL @TIMES. MORE ORIENTED THEN PREVIOUS NIGHT & LESS IMPULSIVE, EVEN USED CALL LIGHT WHEN NEEDED ASSISTANCE A FEW TIMES. VSS. PLEASENT & COOPERATIVE. TEARFUL & SAD ABOUT FAMILY SITUATION. DENIES PAIN, N/V OR DYSPNEA. CONT OF URINE. BED ALARM & CALL LIGHT IN PLACE FOR SAFETY.
--- NOTE | 2022-03-20 17:50 | NUR ---
PT AxOx2-3 WITH CONFUSION INCREASING THE AFTERNOON PROGRESSED. PT WAS PRIMARILY PLEASANT AND COOPERATIVE WITH CARE THIS AM. PT BEGAN HAVING VISUAL HALLUCINATIONS AND PARANOID BEHAVIORS. PT REFUSED HIS MEDICATIONS THIS SHIFT. PT DECLINES HIS BLOOD PRESSURE MEDS BECAUSE "HE DOESN'T HAVE HIGH BLOOD PRESSURE." PT BECAME BRIEFLY AGITATED THIS AFTERNOON REQUESTING TO LEAVE AND TELLING STAFF THAT HE DOESN'T NEED THE CHAIR ALARMS AND REPEATEDLY GETTING UP WITHOUT CALLING. PT ALSO REFUSES TO USE FWW, DESPITE INTERMITTENT UNSTEADY GAIT. PT BEGAN ACTING MORE RELAXED AFTER BEING WALKED DOWN THE FLANNERY AND SITTING IN A CHAIR NEAR THE WINDOW WHERE HE WATCHED THE OUTSIDE WATERFALL/POND FOR >1 HOUR. PT IS CURRENTLY SITTING IN CHAIR EATING DINNER. CALL LIGHT IN REACH.
--- NOTE | 2022-03-21 04:22 | NUR ---
SHIFT SUMMARY NO ACUTE CHANGES THIS ALEXIS. AOX3-SELF, TOWN, FOLLOWING DIRECTIONS. FORGETFUL & IMPULSIVE AT TIMES. SBP SLIGHTLY ELEVATED @HS 176/89, HOWEVER PT REFUSED AM LISINOPRIL, DISCUSSED REASONING & IMPORTANCE OF TAKING BP MEDS & PT WAS WILLING TO TAKE PRN HYDRALAZINE, WHEN REASSESSED BP DECREASED DOWN TO 145/82. DENIES PAIN, N/V OR DYSPNEA TONIGHT. CALL LIGHT & BED ALARM IN PLACE FOR SAFETY. WILL MONITOR.
--- NOTE | 2022-03-21 17:57 | NUR ---
PT PLEASANT TODAY. WAS CALLED BY CAMERA MONITOR MANY MANY TIMES TODAY. DISCUSSED WITH DR. NISHANT ASSESSED. CLEARED TO AMBULATE ABOUT ROOM WITH FWW INDEPENDANT. ONLY LIGHTLY UNSTEADY AT THIS TIME. HE HAS BEEN CONCERNED ABOUT HIS FINANCES. I CALLED HIS GUARDIAN. SHE TALKED WITH HIM. HE FEELS BETTER RESPECTED AND IS MORE PLEASANT THIS AFT. PRESENTLY IN CHAIR. EATING DINNER. BED IN LOW POSITION, CALL LITE IN REACH, CALLS APPROP
--- NOTE | 2022-03-22 04:57 | NUR ---
SHIFT SUMMARY AOX3-SELF, TOWN, MONTH. FORGETFUL. ABLE TO FOLLOW DIRECTIONS & ANSWER MOST QUESTIONS APPROPRIATE. HAD HEADACHE @BEGINNING OF SHIFT & MEDICATED 1X c TYLENOL, NO FURTHER FORRESTER REPORTED FROM PT. DENIES N/V OR DYSPNEA. IND TO RESTROOM & BACK TO BED. CALL LIGHT IN REACH & PT ABLE TO MAKE NEEDS KNOWN.
--- NOTE | 2022-03-22 17:19 | NUR ---
SHIFT SUMMARY NO ACUTE CHANGES THIS SHIFT. PT IS A/O X3 AND AWAITING PLACEMENT. HOWEVER, HE IS UPSET THAT NOBODY HAS BEEN BY TO EVALUATE HIM FOR PLACEMENT YET. IND IN THE ROOM, OVERALL IS PLEASANT AND COOPERATIVE WITH CARE. VSS. WILL REPORT TO FIONA RN.
--- NOTE | 2022-03-23 17:45 | NUR ---
SHIFT SUMMARY NO ACUTE CHANGES THIS SHIFT. PT IS INDEPENDENT IN ROOM AND CONTINUES TO AWAIT PLACEMENT. EVALUATED BY APS TODAY. HTN THIS AFTERNOON AND MEDICATED PRN. VSS. WILL REPORT TO FIONA MELÉNDEZ.
--- NOTE | 2022-03-24 15:58 | NUR ---
DAY SHIFT SUMMARY 86 YR OLD MALE PT WAITING PLACEMENT. PT COMPLAINT OF FOOT PAIN, ITCHING ON BACK (MEDICATED CREAM PROVIDED PER EMAR), MD AWARE. PT ON RA, STANDBY ASSIST WITH WALKER. NO ACUTE CHANGES THIS SHIFT. CALL LIGHT WITHIN REACH BUT NOT ABLE TO CALL APPROPRIATE D/T CONFUSION. FREQUENT ROUNDING.
--- NOTE | 2022-03-25 18:09 | NUR ---
DAY SHIFT SUMMARY 86 YR OLD MALE PT WITH AMS, WAITING FOR PLACEMENT. ON RA, ABLE TO TAKE MEDS WHOLE. CONFUSED AND AT TIMES IMPULSIVE, BED AND CHAIR ALARM ON. CALL LIGHT IN REACH BUT UNABLE TO CALL APPROPRIATELY, FREQUENT ROUNDING. NO ACUTE CHANGES THIS SHIFT.
--- NOTE | 2022-03-26 04:58 | NUR ---
END OF SHIFT NOTE PT EXCITED ABOUT PLACEMENT. ANXIOUS TO GET OUT OF HOSPITAL. PT CONTINUES TO GET UP WITHOUT CALLING, SETTING UP BED ALARM. UNSTEADY ON FEET WITHOUT WALKER. PT C/O REDNESS AND BURNING IN FEET.
--- NOTE | 2022-03-26 14:26 | NUR ---
SHIFT SUMMARY PT SLEEPING, RESTING QUIETLY AT START OF SHIFT. WOKE EASILY FOR CAR. PLEASANT AND CO-OP. CONTINUES TO WAIT FOR PLACEMENT, POSSIBLY ON MONDAY. BED ALARM ON FOR SAFETY. PT DID USE CALL LT ONE TIME TODAY, BUT DOES NOT USUALLY CALL FOR ASSIST AND TAKES OFF WITHOUT HIS WALKER W/O ASSISTANCE. PT IS USED TO BEING INDEPENDENT, BUT IS A LITTLE UNSTEADY. NO C/O PAIN. DENIES FURTHER NEEDS AT THIS TIME. CALL LT IN REACH.
--- NOTE | 2022-03-27 05:31 | NUR ---
END OF SHIFT NOTE PT CLOTHING CHANGED AT START OF SHIFT. COOPERATIVE WITH CARE. PT WOKE UP AROUND 0300 C/O PEOPLE ARGUING OUTSIDE HIS DOOR. NO ACUTE CHANGES IN THE NIGHT.
--- NOTE | 2022-03-27 14:30 | NUR ---
SHIFT SUMMARY PT AWAKE AT START OF SHIFT, OOB TO BTHRM, SETTING BED ALARM OFF. PT IS PLEASANT AND CO-OP, BUT FORGETFUL AT TIMES ABOUT CALLING FOR ASSIST WHEN UP OR USING HIS WALKER TO AMBULATE. CONTINUES TO WAIT FOR PLACEMENT WHEN AVAILABLE. DR DAILEY IN THIS AM TO SEE PT AND PT REPORTED PAIN IN HIS FEET WHEN TRYING TO WALK. DENIED HAVING HX OF GOUT; URIC ACID LEVEL ORDERED. DR DAILEY ALSO INCREASED GABAPENTIN; SEE EMAR. PT GRATEFUL FOR CARE. USES URINAL AT BEDSIDE THRU OUT THE DAY. UP TO CHAIR OR EOB FOR MEALS. DENIES FURTHER NEEDS. CALL LT IN REACH.
--- NOTE | 2022-03-28 17:50 | NUR ---
SHIFT SUMMARY; PATIENT HAD NO ACUTE CHANGES NOTED IN CONDITION DURING DAY. HE DID USE CALL LIGHT SOMETIMES AND WAS ABLE TO MAKE HIS NEEDS KNOWN. HE DID SIT ON SIDE OF BED AND SET OFF BED ALARM A FEW TIMES WHEN HE FORGOT TO CALL TO GO TO THE BATHROOM. HIS VITAL SIGNS ARE ALL WNL WITH THE EXCEPTION OF HIS HEART RATE WHICH SHOWS SINUS PRANAY. PATIENT IS NOT SYMPTOMATIC. HE EATS ALL MEALS WITHOUT ASSIST. HE HAS PLEASANT AFFECT AND IS COOPERATIVE WITH CARE. WILL REMAIN AVAILABLE FOR THIS PATIENT FOR ANY WANTS OR NEEDS UNTIL HAND OFF AND SHIFT REPORT.
--- NOTE | 2022-03-29 05:35 | NUR ---
SHIFT SUMMARY NOC: PT SLEPT ALL NIGHT. GETS UP TO USE RESTROOM. COMPLIANT WITH CARE AND PLEASANT. NO ACUTE EVENTS.
--- NOTE | 2022-03-29 16:20 | NUR ---
SHIFT SUMMARY; NO ACUTE CHANGES IN CONDITION NOTED TODAY. PATIENT COOPERATIVE WITH CARE. GUARDIAN VISITS TODAY.
--- NOTE | 2022-03-30 06:06 | NUR ---
SHIFT SUMMARY NOC: PT SLEPT MOST OF NIGHT. PT IS FIXATED ON SON STEALING HIS MONEY AND WHO HE NEEDS TO CONTACT TO STOP THAT FROM HAPPENING. OTHERWISE, UNEVENTFUL NIGHT. NO ACUTE EVENTS.
--- NOTE | 2022-03-30 16:59 | NUR ---
SHIFT SUMMARY; PATIENT HAD UNEVENTFUL DAY. HE SAT IN THE FLANNERY FOR A LITTLE WHILE AND THEN RETURNED TO HIS ROOM. PATIENT SAYS HE HATES IT WHEN PEOPLE FEEL SORRY FOR HIM. PATIENT AMBULATES WITH ONE PERSON ASSIST USING A FWW TO THE BATHROOM. HE IS A FALL RISK HE GETS UP WITHOUT ASSIST AND FORGETS HIS WALKER.
--- NOTE | 2022-03-31 06:10 | NUR ---
SHIFT SUMMARY NOC: PT SLEPT ALL NIGHT. PT CONCERNED ABOUT HOUSING STATUS. NO ACUTE EVENTS.
--- NOTE | 2022-03-31 17:40 | NUR ---
SHIFT SUMMARY PATIENT A&O X3. MANZANITA. PATIENT PLEASANT AND COOPERATIVE WITH CARE. SBA WITH FWW TO RESTROOM. AWAITING PLACEMENT TO FACILITY. NO SIGNIFICANT EVENTS T/O SHIFT. VSS. WILL CONTINUE TO MONITOR.
--- NOTE | 2022-04-01 06:31 | NUR ---
PT AA0 FOR THE MOST PART; SHORT AND INFREQUENT EPISODES OF FORGETFULLSNESS. NO C/O PAIN. REITERATED THE IMPORTANCE OF UTILIZING THE CALL TORRE WHEN THE NEED TO USE THE RESTROOM ARISES; PT VERBALIZES AN UNDERSTANDING. NO ISSUES THROUGHOUT SHIFT.
--- NOTE | 2022-04-01 17:05 | NUR ---
SHIFT SUMMARY PATIENT A&02-3. SBA WITH WALKER TO RESTROOM. AWATINGING PLACEMENT. NO SIGNIFICANT EVENTS T/O SHIFT. WILL CONTINUE TO MONITOR.
--- NOTE | 2022-04-01 19:29 | NUR ---
AWAKE, WATCHING TV. BECAME ANGRY AND DEMANDED THE "DOOR CLOSED". WHEN STAFF WAS DOING SHIFT REPORT. NO NOTED S/S ACUTE DISTRESS. CALL LIGHT IN REACH. INSTRUCTED TO USE CALL LIGHT IF NEEDING TO GET OOB.
--- NOTE | 2022-04-02 03:18 | NUR ---
ROLL EDGE STITCHER HAND SUMMARY APPEARED ANGRY AND TOLD STAFF TO LEAVE HIS ROOM AT SHIFT COMMENCE, BUT LATER SEEMED MORE RECEPTIVE ANIRUDH ACCEPTED HIS HS MEDS AND ASSESSMENT. HAS BEEN RESTING QUIETLY WITH FEW INTERRUPTIONS SINCE. CALL LIGHT IN REACH. REMAINS ON CAMERA FOR SAFETY. BED ALARM ON
--- NOTE | 2022-04-02 18:28 | NUR ---
SHIFT SUMMARY PATIENT DENIES PAIN, NAUSEA, AND SHORTNESS OF BREATH. PATIENT IS A SBA FOR TRANSFERS. PATIENT IS A&O X3, VERY FORGETFUL. PATIENT PREFERS HIS DOOR CLOSED. PATIENT CAN USE CALL LIGHT APPROPRIATELY. PATIENT IS EATING AND DRINKING WELL. PATIENT IN GOOD SPIRITS TODAY, MAKING JOKES WITH STAFF. PATIENT IS VERY PLEASANT AND COOPERATIVE WITH CARE.
--- NOTE | 2022-04-03 03:02 | NUR ---
WHITTLING ROOM OPERATOR SUMMARY AT SHIFT COMMENCE, VOICED DISCOMFORT OF FEET, BUT REFUSED ANALGESICS OFFERED. LATER REQUESTED AND RECEIVED TYLENOL FOR BILAT FEET PAIN. MED EFFECTIVE HE HAS BEEN RESTING QUIETLY WITH FEW INTERRUPTIONS SINCE. ONE INTERRUPTION WAS SITTING UP AT BEDSIDE, VOICED FEELING DIZZY. BP WAS LOW, SEE DOC FLOW SHEETS. LEGS ELEVATED AND BP TRENDED UPWARD TO 111/57. NO FURTHER C/O VERTIGO. RESTING QUIETLY AT THIS TIME. CALL LIGHT IN REACH.
--- NOTE | 2022-04-03 16:45 | NUR ---
SHIFT SUMMARY PTN PLEASANT FOR SHIFT, A&O X3. NO COMPLAINT OF PAIN THIS SHIFT. SHOWERED HIMSELF AFTER SET UP. MENTIONED PLACEMENT IN HIS OWN PLACE SOON, BUT "WILL ONLY BELIEVE IT WHEN HE SEES IT." CONTINUE TO MONITOR.
--- NOTE | 2022-04-04 03:48 | NUR ---
MANAGER SYSTEM SUMMARY DAY SHIFT REPORTED PT HAVING CONSTIPATION. MEDS GIVEM. MEDS EFFECTIVE, HAD VERY LARGE BM. VOICED FEELING BETTER. HAS BEEN RESTING QUIETLY WITH FEW INTERRUPTIONS SINCE. APPEARS TO BE MORE STEADY WITH AMBULATION, USING WALKER. USES CALL LIGHT APPROPRIATELY. VSS. CALL LIGHT IN REACH. NO NOTED EPISODES OF VERTIGO THIS SHIFT.
[2022-04-04 05:30] LABS: BASOPHILS ABSOLUTE AUTO 0.04 K/mm3 (0.00-0.23); BASOPHILS PERCENT AUTO 1 % (0-2); EOSINOPHILS ABSOLUTE AUTO 0.12 K/mm3 (0.00-0.68); EOSINOPHILS PERCENT AUTO 2 % (0-6); Hematocrit 41.3 % (37.0-53.0); IMMATURE GRAN ABSOLUTE AUTO 0.02 K/mm3 (0.00-0.10); IMMATURE GRAN PERCENT AUTO 0 % (0-1); LYMPHOCYTES ABSOLUTE AUTO 1.97 K/mm3 (0.84-5.20); LYMPHOCYTES PERCENT AUTO 25 % (21-46); MONOCYTES ABSOLUTE AUTO 0.58 K/mm3 (0.16-1.47); MONOCYTES PERCENT AUTO 7 % (4-13); Mean Corpuscular HGB 29.2 pg (26.0-34.0); Mean Corpuscular HGB Conc 33.9 g/dL (31.5-36.5); Mean Corpuscular Volume 86 fL (80-100); Mean Platelet Volume 10.4 fL (9.1-12.4); NEUTROPHILS ABSOLUTE AUTO 5.07 K/mm3 (1.96-9.15); NEUTROPHILS PERCENT AUTO 65 % (41-73); Platelet Count 220 K/mm3 (150-400); RDW Coefficient Variation 13.2 % (11.7-14.2); RDW Standard Deviation 41.2 fL (35.1-46.3)
[2022-04-04 05:55] LABS: Bun/Creatinine Ratio 24.4 (12.0-20.0); Calcium, Blood 9.5 mg/dL (8.5-10.1); Creatinine, Blood 0.94 mg/dL (0.60-1.20); Potassium, Blood 4.5 mmol/L (3.5-5.5)
--- NOTE | 2022-04-04 16:53 | NUR ---
SHIFT SUMMARY- PT A/OX3, PERSON, PLACE AND DATE. FORGETFUL AT TIMES. PT PLEASANT AND COOPERATIVE. PT REPORTS PAIN TO FEET/ TOES, PT NOTED TO HAVE SMALL RED BLISTER TO TOP OF BILAT GREAT TOE. BENGAY ORDERED BY PT A 1 ASSIST TO BATHROOM WIH FWW. LS CLEAR, ON RA. HRR. NO IV ACCESS. PT C/O OF FOOD AT TIMES AND REFUSED LUNCH, LACING OPERATOR CONSULTED AND DIET CHANGED TO SOFT DIET. PT AWAITING PLACEMENT. GUARDIANSHIP ESTABLISHED. NO OTHER ACUTE CHANGES THIS SHIFT.
--- NOTE | 2022-04-05 04:02 | NUR ---
SHIFT SUMMARY ADMITTED FOR AMS. FULL CODE. PLAN IS FOR PLACEMENT. VA PATIENT. LOWER [place]. SOFT BITE SIZE DIET. ON RA. A&O X2-3, FORGETFUL. NEUROPATHY. PT CALLED APPROPRIATELY FOR NEEDS THIS SHIFT. BED ALARM IS ACTIVE. 1 ASSIST W/FWW-BRP. HX OF DEMENTIA
--- NOTE | 2022-04-05 16:06 | NUR ---
SHIFT SUMMARY- PT A/O X3, FORGETFUL AT TIMES. SBA WITH FWW, UNSTEADY GAIT AT TIMES. PT DENIES ANY COMPLAINTS T/O THE DAY. LS CLEAR, ON RA. HRR. PLAN FOR DISCHARGE TO [facility] ON MONDAY. NO OTHER ACUTE CHANGES THIS SHIFT.
--- NOTE | 2022-04-06 03:56 | NUR ---
SHIFT SUMMARY ADMITTED FOR AMS. FULL CODE. PLAN IS FOR PLACEMENT. SOFT BITE SIZE DIET. 1 ASSIST W/FWW - BRP. CIRCLE. ON RA. A&O X3, FORGETFUL. CALLING APPROPRIATELY THIS SHIFT FOR NEEDS. VA PATIENT. COOPERATIVE WITH CARE. HX OF NEUROPATHY, DEMENTIA. NO NEW CONCERNS THIS SHIFT
--- NOTE | 2022-04-06 14:32 | NUR ---
PT HAVING BOUTS OF DIARRHEA X5 WITH DIZZINESS WHILE WORKING WITH PT. AFEBRILE
--- NOTE | 2022-04-06 14:46 | NUR ---
SPOKE WITH DR OVER TELEPHONE, DISCUSSED LOOSE STOOL/DIZZINESS, WITH NO FEVER. WILL CONITNUE TO MONITOR AND ORDER A GI PANAL PER DR'S ORDERS IF DIARRHEA CONTINUES.
--- NOTE | 2022-04-06 16:51 | NUR ---
SHIFT SUMMARY- PT COMPLIANT THROUGHOUT SHIFT. PT WITH BOUTS OF DIARRHEA X5 AFTER LUNCH. LOOSE STOOLS WITH HEADACHE, AND DIZZINESS LASTED ABOUT 2 HRS THEN PT SLEPT. TEATED HEADACHE SEE EMAR. CONTACTED DR REGARDING BOWELS/DIZZINESS. PT AFEBRILE. VSS. PT RESTING NOW WITH CALL LIGHT IN REACH, SIDE RAILS UP, AND BED ALARM ON.
--- NOTE | 2022-04-07 04:25 | NUR ---
SUMMARY: PT A/OX2-3 AND WAS PLEASANT AND COOPERATIVE W/CARE. HE'S IMPULSIVE W/UNSTEADY GAIT AND REQUIRES SBA W/FWW SO HAS BED ALARM ON FOR SAFETY. PT WAS CONTINENT TO TOILET BUT HAD OCCASIONALY URGE INCONTINENCE W/PULLUPS AND PANTS CHANGED PRN. NO FURTHER DIARRHEA THIS SHIFT. PT DENIED PAIN AND ALL OTHER COMPLAINTS. VSS/AFEBRILE, NO ACUTE CHANGES. WCTM AND REPORT TO DAY RN.
--- NOTE | 2022-04-07 16:52 | NUR ---
SHIFT SUMMARY PT AXO X 3-4, ALGAAC[place], PLEASANT AND COOPERATIVE WITH CARE. PT HAS HAD DIARRHEA THIS SHIFT, DR BANUELOS NOTIFIED AND IMMODIUM ORDERED. PT WAS GIVEN [place] WITH MORNING MEDS, DC'D PER DR BANUELOS. PT MEDICATED FOR DIARRHEA AT 1401 BUT HAD MULTIPLE EPISODES AFTER. PT COMPLAINED OF FEELING DIZZY. VS REVEALED HYPOTENSION, 85/70. DR BANUELOS NOTIFIED AND FLUIDS ORDERED AND STARTED. PT LAYING SUPINE NOW RESTING. PO FLUIDS AND GATORAIDE ENCOURAGED. WILL RECHECK BP SOON. BED IN LOW POSITION, CALL LIGHT WITHIN REACH. PT ON REMOTE CAMERA MONITORING. UP WITH 1 ASSIST WITH GB ANME FWW. ABULATION OFFERED UNTIL PATIENT COMPLAINED OF DIZZINESS. PATIENT WORKED WITH PHYSICAL THERAPY, SEE NOTE. IV STARTED IN R WRIST.
--- NOTE | 2022-04-08 05:22 | NUR ---
PT FINISHED FLUID, CREAM APPLIED TO TOES. PT ANXIOUS ABOUT PLACEMENT. NO ACUTE CHANGES IN THE NIGHT. IN THE MORNING PATIENT ACCIDENTALLY REMOVED IV.
--- NOTE | 2022-04-08 14:49 | NUR ---
PATIENT AMBULATED IN HALLS WITH PT, STEADY GAIT WITH GAIT BELT AND FWW, IMPULSIVE TO THE RESTROOM, URGENCY WITH VOIDING, BED/CHAIR ALARMS ON, PLEASANT TO CARE
--- NOTE | 2022-04-08 16:56 | NUR ---
PATIENT PLEASANT, MAKES NEEDS KNOWN, VERY HARD OF HEARING, SHOWERED X2, DIARRHEA, NEED STOOL SAMPLE FOR GI PANEL, LS DIM BASES, COUGH CLEARS CONGESTION, SATS RA 96%, NO SOB, AMBULATED WITH PT IN HALLS TODAY, STANDY BY ASSIST WITH FWW AND GAIT BELT, BED/CHAIR ALARMS ON, PATIENT IMPULSIVE TO VOID. DENIES CP, N/V. MEDICATED WITH LYRICA FOR FOOT NEUROPATHY, USES CALL LIGHT, CALL LIGHT WITH IN REACH, DOES CALL FOR ASSISTANCE TO THE BATHROOM, WILL RELAY TO PM RN, WCTM
[2022-04-09 04:31] LABS: BASOPHILS ABSOLUTE AUTO 0.05 K/mm3 (0.00-0.23); BASOPHILS PERCENT AUTO 1 % (0-2); EOSINOPHILS ABSOLUTE AUTO 0.17 K/mm3 (0.00-0.68); EOSINOPHILS PERCENT AUTO 3 % (0-6); Hematocrit 35.3 % (37.0-53.0); Hemoglobin 12.1 g/dL (13.5-17.5); IMMATURE GRAN ABSOLUTE AUTO 0.01 K/mm3 (0.00-0.10); IMMATURE GRAN PERCENT AUTO 0 % (0-1); LYMPHOCYTES ABSOLUTE AUTO 2.29 K/mm3 (0.84-5.20); LYMPHOCYTES PERCENT AUTO 41 % (21-46); MONOCYTES ABSOLUTE AUTO 0.62 K/mm3 (0.16-1.47); MONOCYTES PERCENT AUTO 11 % (4-13); Mean Corpuscular HGB 29.1 pg (26.0-34.0); Mean Corpuscular HGB Conc 34.3 g/dL (31.5-36.5); Mean Corpuscular Volume 85 fL (80-100); Mean Platelet Volume 9.8 fL (9.1-12.4); NEUTROPHILS ABSOLUTE AUTO 2.52 K/mm3 (1.96-9.15); NEUTROPHILS PERCENT AUTO 44 % (41-73); Platelet Count 193 K/mm3 (150-400); RDW Coefficient Variation 13.2 % (11.7-14.2); RDW Standard Deviation 40.7 fL (35.1-46.3); Red Blood Cell Count 4.16 M/mm3 (4.30-5.90); White Blood Cell Count 5.66 K/mm3 (4.00-11.30)
--- NOTE | 2022-04-09 04:36 | NUR ---
PT PUT ON CONTACT PRECAUTION DUE TO GI PANEL ORDERED. PT WAS VERY AGGITATED AT THIS AND ASKED TO SPEAK WITH CHARGE NURSE. ALAN CAME IN AND SPOKE WITH THE PATIENT. PT IS CONCERNED THIS WILL MESS WITH HIS DISCHARGE. NO LOOSE STOOL SINCE YESTERDAY. GI PANEL ORDERED AT 1030 04/09, PT WOULD LIKE ORDER D/C SOON POSSIBLE.
[2022-04-09 04:50] LABS: Calcium, Blood 8.4 mg/dL (8.5-10.1); Creatinine, Blood 0.79 mg/dL (0.60-1.20); Potassium, Blood 4.1 mmol/L (3.5-5.5)
[2022-04-09 13:00] LABS: Campylobacter Sp Not Detected (NOT DETECT); Plesiomonas Shigelloides Not Detected (NOT DETECT)
[2022-04-09 13:01] LABS: Adenovirus F 40/41 Not Detected (NOT DETECT); Astrovirus Not Detected (NOT DETECT); Cryptosporidium Not Detected (NOT DETECT); Cyclospora Cayetanensis Not Detected (NOT DETECT); E. Coli O157 Not Detected (NOT DETECT); Entamoeba Histolytica Not Detected (NOT DETECT); Enteroaggregative E. coli-EAEC Not Detected (NOT DETECT); Enteropathogenic E. coli-EPEC Not Detected (NOT DETECT); Enterotoxigenic E. coli-ETEC Not Detected (NOT DETECT); Giardia Lamblia Not Detected (NOT DETECT); Norovirus GI/GII Not Detected (NOT DETECT); Rotavirus A Not Detected (NOT DETECT); Salmonella Sp Not Detected (NOT DETECT); Sapovirus Not Detected (NOT DETECT); Shiga Toxin-prod E. coli-STEC Not Detected (NOT DETECT); Shigella/Enteroin E. coli-EIEC Not Detected (NOT DETECT); Vibrio Cholerae Not Detected (NOT DETECT); Vibrio Sp Not Detected (NOT DETECT); Yersinia Enterocolitica Not Detected (NOT DETECT)
--- NOTE | 2022-04-09 16:51 | NUR ---
MAKES NEEDS KNOWN, CONFUSED AT TIMES, REORIENTS, MOSTLY ORIENTED TO SELF AND PLACE, AMBULATES IN HALLS WITH FWW AND GATE BELT, IMPULSIVE TO THE BR AT TIMES, COOPERATIVE TO CARE, GI PANEL CAME BACK NEGATIVE, ROBB N/V, NO CP, USES CALL LIGHT, CALL LIGHT WITH IN REACH, WILL RELAY TO PM RN, NO ACUTE CHANGES
--- NOTE | 2022-04-09 22:41 | NUR ---
PT SET OFF BED ALARM, STATES HE NEEDS TO USE THE BATHROOM. 1PA USING FWW TO THE BATHROOM AND BACK TO BED. PT VERY PLEASANT AND THANKING STAFF FOR HELPING HIM. CALL LT IN REACH. BED ALARM ON.
--- NOTE | 2022-04-10 01:22 | NUR ---
PT UP TO BR A SBA USING FWW. VERY COOPERATIVE WITH CARE.
--- NOTE | 2022-04-10 04:37 | NUR ---
SHIFT SUMMARY: NO COMPLAINTS. PT UP TO BATHROOM A FEW TIMES. SBA USING FWW. MINIMUM ASSISTANCE NEEDED TO HELP OUT OF BED. COOPERATE WITH CARE T/O SHIFT. RESTED WELL. ON RA. NO ACUTE CHANGES. TENTATIVE PLAN IS TO DISCHARGE MONDAY TO [facility]. PT IS EXCITED TO GO THERE. WILL CONTINUE TO PROVIDE CARE UNTIL SHIFT REPORT. CALL LT IN REACH. BED ALARM ON.
--- NOTE | 2022-04-10 07:38 | NUR ---
REPORT FROM PM RN PEEWEE, NO DISTRESS, UP TO BATHROOM NOW, STAND BY ASSIST, PLEASANT TO CARE THIS AM, MAKES NEEDS KNOWN, BEDALARM ON, PATIENT NOT USING CALL LIGHT THIS AM, WCTM
[2022-04-10 12:28] LABS: SARS-Cov-2 (COVID-19) PCR, MMC NEGATIVE (NEGATIVE)
--- NOTE | 2022-04-10 17:45 | NUR ---
PATIENT ALERT AND ORIENTED TO SELF, STAFF, PLACE. MAKES NEEDS KNOWN, ROBB HARDEN CP, NV. PATIENT HAD DIARRHEA THIS AM, MEDICATED WITH IMMODIUM, PATIENT HAS HAD FORMED STOOL. TO BE TRANSFERRED TO [facility] TOMORROW, COVID TEST DONE AND CAME BACK NEGATIVE, NO ACUTE CHANGES THROUGH THE DAY, BED/CHAIR ALARM ON FOR IMPULSIVE FREQUENCY FOR BATHROOM, STAND BY ASSIST FOR TRANSFER AND TO BR. WILL RELAY TO PM RN, ESTRELLA
--- NOTE | 2022-04-11 00:26 | NUR ---
PT RESTING QUIETLY. BED ALARM ON. CALL LT IN REACH.
--- NOTE | 2022-04-11 01:53 | NUR ---
PT RESTING QUIETLY. BED ALARM ON. CALL LT IN REACH.
--- NOTE | 2022-04-11 04:02 | NUR ---
SHIFT SUMMARY: PT RESTED WELL T/O SHIFT. NO ACUTE CHANGES. NO COMPLAINTS. PT IS LOOKING FORWARD TO DISCHARGING TO [facility]. TOOK MEDS WHOLE WITH WATER WITHOUT DIFFICULTY. SBA USING FWW. ABLE TO STATE NEEDS APPROPRIATELY. WILL CONTINUE TO PROVIDE CARE UNTIL SHIFT REPORT.
--- NOTE | 2022-04-11 10:28 | NUR ---
TALKED WITH PT ABOUT HIS DELAY IN TRANSFERING TO [facility]. PT EXPRESSED DISSAPOINTMENT STATING THAT, "IT'S ALWAYS TOMORROW, AND THEN TOMORROW". EXPLAINED TO PT THAT THERE WAS MISSCOMUNICATION ABOUT TRANSPORTAION BUT THAT A RIDE HAS BEEN ARRANGED FOR TOMORROW MORNING AT 1000. PT APPEARED TO UNDERSTAND BUT STILL SEEMED DOUBTFUL.
--- NOTE | 2022-04-11 16:43 | NUR ---
SHIFT SUMMARY PT IS ALERT AND HAS BEEN PLEASANT THIS SHIFT. HE IS A STANDBY ASSIST TO BATHROOM BUT HAS NOT USED HIS CALL LIGHT FOR ASSISTANCE. PT HAD ONE EPISODE OF DIARRHEA ABOUT NOON AND IMODIUM WAS GIVEN. PT WAS TO D/C TO [facility] THIS MORNING BUT THE TRANSFER WAS DELAYED UNTIL TOMORROW. PT EXPRESSED DISSAPOINTMENT AND FRUSTRATION BUT REMAINED PLEASANT. PT IS TO D/C TO [facility] TOMORROW, AT 1000 BY WHEELCHAIR.
--- NOTE | 2022-04-12 04:41 | NUR ---
SHIFT SUMMARY A/OX3, FORGETFUL. SBA TO BATHROOM WITH FWW. REPORTS PAIN TO BILATERAL FEET, BENGAY CREAM APPLIED. PLAN IS TO D/C TO [facility] TODAY. VSS, NO ACUTE CHANGES AT THIS TIME. BED IN LOWEST POSITION WITH CALL LIGHT IN REACH. WILL CONTINUE TO MONITOR AND REPORT TO ONCOMING RN.
[2022-04-12 05:43] LABS: Influenza A, PCR NEGATIVE (NEGATIVE); Influenza B, PCR NEGATIVE (NEGATIVE); Resp Syncytial Virus, PCR NEGATIVE (NEGATIVE); SARS-Cov-2 (COVID-19) PCR, MMC NEGATIVE (NEGATIVE)
[2022-04-12] MEDS ORDERED: CALYPXO HP CRE113 GM TOP (09:28)
--- NOTE | 2022-04-12 10:36 | NUR ---
PT WAS TRANSPORTED TO [facility] BY WHEELCHAIR. PT WAS ABLE TO WALK INDEPENDENTLY TO WHEELCHAIR. PT PACKED ALL BELONGINGS FIRST THING IN THE MORNING AND APPEARED TO HAVE ALL BELONGINGS IN HIS TWO BAGS THAT WENT WITH HIM IN HIS LAP. PT WAS GIVEN FOLDER WITH DISCHARGE INSTRUCTIONS. PT APPEARED EXCITED TO BE GOING TO [facility] BUT EXPRESSED GRATITUDE FOR HIS CARE.
== END 2022-04-12 10:04 | disposition home or self-care (01) ==
LOC: ER 17:38 → MEDS 17:39
PROVIDERS: Emergency Medicine; Family Medicine; Internal Medicine; ADMIT Internal Medicine
DX: G30.9 Alzheimer's disease, unspecified (principal); F02.80 Dementia in other diseases classified elsewhere, unspecified severity, without behavioral disturbance, psychotic disturbance, mood disturbance, and anxiety; F39 Unspecified mood [affective] disorder; R45.851 Suicidal ideations; T76.01XA Adult neglect or abandonment, suspected, initial encounter; R45.850 Homicidal ideations; R41.82 Altered mental status, unspecified; I10 Essential (primary) hypertension; Z20.822 Contact with and (suspected) exposure to COVID-19; G62.9 Polyneuropathy, unspecified
CPT/HCPCS: 0241U; 36415; 70450; 80048; 80053; 83735; 84443; 84550; 85025; 87507; 97110; 97110-CQ; 97116; 97116-CQ; 97129; 97161; 97164; 97165; 97530-CQ; 99284-25; A9270; G0378; G0480; J1650; J7030; Q3014; U0004

== ENCOUNTER 2022-04-19 19:24 | Emergency (ER) | payer MEDICARE ==
[~2022-04-19] VITALS: Ht 172.7 cm; Wt 99.8 kg
[~2022-04-19 19:24] MED LIST: Acetaminophen650 M1 PO; CALYPXO HP CRE113 GM TOP; Calcium Carbon500 MG PO; Prinivil10 MG PO
[2022-04-19] MEDS ORDERED: QUET25 PO (21:06)
== END 2022-04-19 22:05 | disposition home or self-care (01) ==
LOC: ER 19:24
DX: G30.9 Alzheimer's disease, unspecified (principal); F02.80 Dementia in other diseases classified elsewhere, unspecified severity, without behavioral disturbance, psychotic disturbance, mood disturbance, and anxiety; I10 Essential (primary) hypertension; Z79.899 Other long term (current) drug therapy
CPT/HCPCS: 36415; 93005; 93010; 99285-25; A9270

== ENCOUNTER 2022-05-08 09:43 | Emergency (ER) | payer MEDICARE, OTHER ==
[~2022-05-08] VITALS: Ht 172.7 cm; Wt 95.2 kg
[~2022-05-08 09:43] MED LIST changes: +FAMO20 PO; +NEURONTIN400 M9 PO; +QUET25 PO; +QUETIAPINE FUMA25 MG PO
== END 2022-05-08 12:30 | disposition home or self-care (01) ==
LOC: ER 09:43
DX: S33.2XXA Dislocation of sacroiliac and sacrococcygeal joint, initial encounter (principal); S09.90XA Unspecified injury of head, initial encounter; W18.39XA Other fall on same level, initial encounter; I10 Essential (primary) hypertension; Z79.899 Other long term (current) drug therapy
CPT/HCPCS: 70450; 72220

== ENCOUNTER 2022-09-14 19:23 | Emergency (ER) | payer MEDICARE, OTHER ==
[~2022-09-14] VITALS: Ht 180.3 cm; Wt 92.5 kg
== END 2022-09-14 21:45 | disposition home or self-care (01) ==
LOC: ER 19:23
DX: S20.211A Contusion of right front wall of thorax, initial encounter (principal); W19.XXXA Unspecified fall, initial encounter; Z79.899 Other long term (current) drug therapy
CPT/HCPCS: 71101; A9270

== ENCOUNTER 2022-09-16 12:00 | Emergency (ER) | payer MEDICARE, OTHER ==
[~2022-09-16] VITALS: Ht 182.9 cm; Wt 90.7 kg
[2022-09-16 12:28] LABS: Source, Urine Straight Cath
[2022-09-16 12:48] LABS: Appearance, Urine Clear (Clear); Bilirubin, Urine Neg (Neg); Blood, Urine Neg (Neg); Color, Urine Yellow (P-Yellow); Glucose Qualitative, Urine Neg (Neg); Ketones, Urine Neg (Neg); Leukocyte Esterase, Urine Neg (Neg); Nitrite, Urine Neg (Neg); Protein, Urine Neg (Neg); Specific Gravity, Urine 1.025 (1.003-1.022); Urobilinogen, Urine NORM (Normal)
[2022-09-16 12:57] LABS: Albumin, Blood 3.2 g/dL (3.4-5.0); Bilirubin, Total 0.4 mg/dL (0.1-1.0); Bun/Creatinine Ratio 20.3 (12.0-20.0); Calcium, Blood 8.9 mg/dL (8.5-10.1); Creatinine, Blood 0.79 mg/dL (0.60-1.20); Globulin, Blood 3.2 g/dL (2.2-4.0); Total Protein, Blood 6.4 g/dL (6.4-8.2)
[2022-09-16 14:00] LABS: BASOPHILS ABSOLUTE AUTO 0.04 K/mm3 (0.00-0.23); BASOPHILS PERCENT AUTO 1 % (0-2); EOSINOPHILS ABSOLUTE AUTO 0.08 K/mm3 (0.00-0.68); EOSINOPHILS PERCENT AUTO 2 % (0-6); Hematocrit 38.9 % (37.0-53.0); IMMATURE GRAN ABSOLUTE AUTO 0.04 K/mm3 (0.00-0.10); IMMATURE GRAN PERCENT AUTO 1 % (0-1); LYMPHOCYTES ABSOLUTE AUTO 2.17 K/mm3 (0.84-5.20); LYMPHOCYTES PERCENT AUTO 44 % (21-46); MONOCYTES ABSOLUTE AUTO 0.44 K/mm3 (0.16-1.47); MONOCYTES PERCENT AUTO 9 % (4-13); Mean Corpuscular HGB 29.3 pg (26.0-34.0); Mean Corpuscular HGB Conc 33.4 g/dL (31.5-36.5); Mean Corpuscular Volume 88 fL (80-100); Mean Platelet Volume 10.6 fL (9.1-12.4); NEUTROPHILS ABSOLUTE AUTO 2.13 K/mm3 (1.96-9.15); NEUTROPHILS PERCENT AUTO 44 % (41-73); Platelet Count 141 K/mm3 (150-400); RDW Coefficient Variation 13.5 % (11.7-14.2); RDW Standard Deviation 43.7 fL (35.1-46.3); Red Blood Cell Count 4.44 M/mm3 (4.30-5.90)
[2022-09-16 14:00] LABS: Influenza A, PCR NEGATIVE (NEGATIVE); Influenza B, PCR NEGATIVE (NEGATIVE); Resp Syncytial Virus, PCR NEGATIVE (NEGATIVE); SARS-Cov-2 (COVID-19) PCR, MMC NEGATIVE (NEGATIVE)
[2022-09-16] MEDS ORDERED: ATORVASTATIN CA20 MG PO (15:26)
== END 2022-09-16 15:18 | disposition home or self-care (01) ==
LOC: ER 12:00
PROVIDERS: Emergency Medicine
DX: R41.82 Altered mental status, unspecified (principal); I10 Essential (primary) hypertension; E11.9 Type 2 diabetes mellitus without complications; F03.90 Unspecified dementia, unspecified severity, without behavioral disturbance, psychotic disturbance, mood disturbance, and anxiety; Z20.822 Contact with and (suspected) exposure to COVID-19; Z79.899 Other long term (current) drug therapy
CPT/HCPCS: 0241U; 36415; 70450; 71045; 80053; 81003; 85025; 93005; 93010

== ENCOUNTER → 2022-11-17 | Outpatient (CLI) | payer MEDICARE, OTHER ==
[~2022-11-17] MED LIST changes: +ATORVASTATIN CA20 MG PO
== END | disposition home or self-care (01) ==
LOC: LAB 10:30 → LAB SHORT 10:30
DX: D52.9 Folate deficiency anemia, unspecified (principal); G62.9 Polyneuropathy, unspecified
CPT/HCPCS: 82607; 82746

== ENCOUNTER 2022-11-29 22:24 | Emergency (ER) | payer MEDICARE, OTHER ==
[~2022-11-29] VITALS: Ht 177.8 cm; Wt 93.4 kg
== END 2022-11-30 02:00 | disposition home or self-care (01) ==
LOC: ER 22:24
DX: S09.90XA Unspecified injury of head, initial encounter (principal); I10 Essential (primary) hypertension; E11.9 Type 2 diabetes mellitus without complications; Z79.899 Other long term (current) drug therapy; W19.XXXA Unspecified fall, initial encounter
CPT/HCPCS: 70450; 99284-25

== ENCOUNTER 2023-05-04 10:09 | Emergency (ER) | payer OTHER ==
[~2023-05-04] VITALS: Ht 177.8 cm; Wt 81.7 kg
[2023-05-04 12:15] VITALS: BP 174/60
== END 2023-05-04 15:04 | disposition home or self-care (01) ==
LOC: ER 10:09
DX: S00.81XA Abrasion of other part of head, initial encounter (principal); W01.10XA Fall on same level from slipping, tripping and stumbling with subsequent striking against unspecified object, initial encounter; Z79.899 Other long term (current) drug therapy; I10 Essential (primary) hypertension; E11.42 Type 2 diabetes mellitus with diabetic polyneuropathy
CPT/HCPCS: 70450; 72125; 96360; 99284-25; A9270; J7030

== ENCOUNTER 2023-07-21 15:59 | Emergency (ER) | payer OTHER ==
[~2023-07-21] VITALS: Ht 175.3 cm; Wt 91.6 kg
[2023-07-21 18:32] VITALS: BP 171/82
== END 2023-07-21 19:00 | disposition home or self-care (01) ==
LOC: ER 15:59
DX: M79.89 Other specified soft tissue disorders (principal); Z79.899 Other long term (current) drug therapy
CPT/HCPCS: 73630; 99283-25

== ENCOUNTER → 2023-08-07 | Outpatient (CLI) | payer MEDICARE, OTHER | END | disposition home or self-care (01) | LOC: LAB SHORT 07:49 → LAB 07:49 | DX: D22.9 Melanocytic nevi, unspecified (principal) | CPT/HCPCS: 88305 ==

== ENCOUNTER 2023-10-08 23:33 | Emergency (ER) | payer MEDICARE, OTHER ==
[~2023-10-08] VITALS: Ht 177.8 cm; Wt 90.7 kg
[2023-10-09 01:21] LABS: BASOPHILS ABSOLUTE AUTO 0.03 K/mm3 (0.00-0.23); BASOPHILS PERCENT AUTO 1 % (0-2); EOSINOPHILS ABSOLUTE AUTO 0.13 K/mm3 (0.00-0.68); EOSINOPHILS PERCENT AUTO 2 % (0-6); Hematocrit 40.1 % (37.0-53.0); Hemoglobin 13.5 g/dL (13.5-17.5); IMMATURE GRAN ABSOLUTE AUTO 0.01 K/mm3 (0.00-0.10); IMMATURE GRAN PERCENT AUTO 0 % (0-1); LYMPHOCYTES ABSOLUTE AUTO 1.65 K/mm3 (0.84-5.20); LYMPHOCYTES PERCENT AUTO 29 % (21-46); MONOCYTES ABSOLUTE AUTO 0.63 K/mm3 (0.16-1.47); MONOCYTES PERCENT AUTO 11 % (4-13); Mean Corpuscular HGB 29.5 pg (26.0-34.0); Mean Corpuscular HGB Conc 33.7 g/dL (31.5-36.5); Mean Corpuscular Volume 88 fL (80-100); Mean Platelet Volume 9.8 fL (9.1-12.4); NEUTROPHILS ABSOLUTE AUTO 3.22 K/mm3 (1.96-9.15); NEUTROPHILS PERCENT AUTO 57 % (41-73); Platelet Count 180 K/mm3 (150-400); RDW Standard Deviation 42.3 fL (35.1-46.3); Red Blood Cell Count 4.57 M/mm3 (4.30-5.90); White Blood Cell Count 5.67 K/mm3 (4.00-11.30)
[2023-10-09 02:05] LABS: Bun/Creatinine Ratio 20.7 (12.0-20.0); Calcium, Blood 8.8 mg/dL (8.5-10.1); Creatinine, Blood 0.77 mg/dL (0.60-1.20); Potassium, Blood 3.9 mmol/L (3.5-5.5)
[2023-10-09 03:41] VITALS: BP 132/74
== END 2023-10-09 03:43 | disposition home or self-care (01) ==
LOC: ER 23:33
PROVIDERS: Student in an Organized Health Care Education/Training Program
DX: S40.012A Contusion of left shoulder, initial encounter (principal); S30.0XXA Contusion of lower back and pelvis, initial encounter; R42 Dizziness and giddiness; W18.39XA Other fall on same level, initial encounter; I10 Essential (primary) hypertension; E11.42 Type 2 diabetes mellitus with diabetic polyneuropathy; G30.9 Alzheimer's disease, unspecified; F02.80 Dementia in other diseases classified elsewhere, unspecified severity, without behavioral disturbance, psychotic disturbance, mood disturbance, and anxiety; Z79.899 Other long term (current) drug therapy; Y92.129 Unspecified place in nursing home as the place of occurrence of the external cause
CPT/HCPCS: 70450; 73000; 73030; 74177; 80048; 85025; 99284-25; A9270; Q9967

== ENCOUNTER 2023-10-10 18:11 | Emergency (ER) | payer OTHER, MEDICARE ==
[~2023-10-10] VITALS: Ht 172.7 cm; Wt 92.1 kg
[2023-10-10 21:30] VITALS: BP 146/78
== END 2023-10-10 21:30 | disposition home or self-care (01) ==
LOC: ER 18:11
DX: Z04.3 Encounter for examination and observation following other accident (principal); G30.9 Alzheimer's disease, unspecified; F02.80 Dementia in other diseases classified elsewhere, unspecified severity, without behavioral disturbance, psychotic disturbance, mood disturbance, and anxiety; I10 Essential (primary) hypertension; E11.42 Type 2 diabetes mellitus with diabetic polyneuropathy
CPT/HCPCS: 99283

== ENCOUNTER → 2023-12-05 | Outpatient (CLI) | payer MEDICARE, OTHER ==
[~2023-12-05] MED LIST changes: +ALEVE ARTHRITI100 GM TOP; +ASPI81CH PO; +BISA10S; +Bactrim Ds Tab1 EACH PO; +DESITIN DAILY136 GM TOP; +DESITIN DAILY136 GM TP; +DULCOLAX400 MG/5 M PO; +LISI20 PO; +LOPERAMIDE1 MG/7.10 PO; +MELATONIN1 MG PO; +NYSTRIT TOP; +PARO10 PO; +PEPTO-BISMOL T262 M2 PO; +Seroquel Xr50 MG PO; +TUMS500 MG PO; +[UNRECOGNIZED DRUG - OTHER] TOP
[2023-12-05 16:22] LABS: Source, Urine Clean Catch
[2023-12-05 17:01] LABS: Appearance, Urine Clear (Clear); Bilirubin, Urine Neg (Neg); Blood, Urine Neg (Neg); Color, Urine Yellow (P-Yellow); Glucose Qualitative, Urine Neg (Neg); Ketones, Urine Neg (Neg); Leukocyte Esterase, Urine Neg (Neg); Nitrite, Urine Neg (Neg); Protein, Urine Neg (Neg); Specific Gravity, Urine 1.005 (1.003-1.022); Urobilinogen, Urine NORM (Normal); pH, Urine 6.5 (5.0-8.0)
== END ==
LOC: LAB 16:20 → LAB SHORT 16:20
PROVIDERS: Family Medicine
DX: N39.0 Urinary tract infection, site not specified (principal)
CPT/HCPCS: 81003

== ENCOUNTER 2023-12-10 00:58 | Emergency (ER) | payer MEDICARE, OTHER ==
[~2023-12-10] VITALS: Ht 180.3 cm; Wt 95.2 kg
[~2023-12-10 00:58] MED LIST changes: -Bactrim Ds Tab1 EACH PO; -DESITIN DAILY136 GM TP; -LISI20 PO; -MELATONIN1 MG PO
[2023-12-10 01:27] LABS: BASOPHILS ABSOLUTE AUTO 0.04 K/mm3 (0.00-0.23); BASOPHILS PERCENT AUTO 1 % (0-2); EOSINOPHILS ABSOLUTE AUTO 0.11 K/mm3 (0.00-0.68); EOSINOPHILS PERCENT AUTO 2 % (0-6); Hematocrit 37.2 % (37.0-53.0); Hemoglobin 12.5 g/dL (13.5-17.5); IMMATURE GRAN ABSOLUTE AUTO 0.01 K/mm3 (0.00-0.10); IMMATURE GRAN PERCENT AUTO 0 % (0-1); LYMPHOCYTES ABSOLUTE AUTO 2.11 K/mm3 (0.84-5.20); LYMPHOCYTES PERCENT AUTO 34 % (21-46); MONOCYTES ABSOLUTE AUTO 0.77 K/mm3 (0.16-1.47); MONOCYTES PERCENT AUTO 12 % (4-13); Mean Corpuscular HGB 29.4 pg (26.0-34.0); Mean Corpuscular HGB Conc 33.6 g/dL (31.5-36.5); Mean Corpuscular Volume 88 fL (80-100); Mean Platelet Volume 9.3 fL (9.1-12.4); NEUTROPHILS ABSOLUTE AUTO 3.24 K/mm3 (1.96-9.15); NEUTROPHILS PERCENT AUTO 52 % (41-73); Platelet Count 241 K/mm3 (150-400); RDW Coefficient Variation 13.3 % (11.7-14.2); RDW Standard Deviation 42.7 fL (35.1-46.3); Red Blood Cell Count 4.25 M/mm3 (4.30-5.90); White Blood Cell Count 6.28 K/mm3 (4.00-11.30)
[2023-12-10 01:45] LABS: Albumin, Blood 3.3 g/dL (3.4-5.0); Bilirubin, Total 0.6 mg/dL (0.1-1.0); Calcium, Blood 8.8 mg/dL (8.5-10.1); Creatinine, Blood 0.71 mg/dL (0.60-1.20); Globulin, Blood 3.4 g/dL (2.2-4.0); Potassium, Blood 4.2 mmol/L (3.5-5.5); Total Protein, Blood 6.7 g/dL (6.4-8.2)
[2023-12-10 04:00] VITALS: BP 177/74
== END 2023-12-10 04:00 | disposition home or self-care (01) ==
LOC: ER 00:58
PROVIDERS: Student in an Organized Health Care Education/Training Program
DX: S09.90XA Unspecified injury of head, initial encounter (principal); W18.30XA Fall on same level, unspecified, initial encounter; Z79.899 Other long term (current) drug therapy; Z79.82 Long term (current) use of aspirin
CPT/HCPCS: 70450; 80053; 85025; 99284-25

== ENCOUNTER 2023-12-23 18:02 | Emergency (ER) | payer MEDICARE, OTHER ==
[~2023-12-23] VITALS: Ht 177.8 cm; Wt 83.9 kg
[2023-12-23] MEDS ORDERED: Bactrim Ds Tab1 EACH PO (20:23)
[2023-12-23] MEDS ORDERED: Trimethoprim/Sulfamethoxazole DS Tab PO ONE (20:25)
[2023-12-23 20:57] VITALS: BP 153/62
[2023-12-23] MEDS ORDERED: LISI20 PO (21:46)
[2023-12-23] MEDS ORDERED: DESITIN DAILY136 GM TP (21:50)
[2023-12-23] MEDS ORDERED: MELATONIN1 MG PO (21:54)
== END 2023-12-23 21:02 | disposition home or self-care (01) ==
LOC: ER 18:02
DX: S09.90XA Unspecified injury of head, initial encounter (principal); S16.1XXA Strain of muscle, fascia and tendon at neck level, initial encounter; L03.011 Cellulitis of right finger; W01.10XA Fall on same level from slipping, tripping and stumbling with subsequent striking against unspecified object, initial encounter; F03.90 Unspecified dementia, unspecified severity, without behavioral disturbance, psychotic disturbance, mood disturbance, and anxiety; Z79.899 Other long term (current) drug therapy; Z79.82 Long term (current) use of aspirin
CPT/HCPCS: 70450; 72125; 99284-25; A9270

== ENCOUNTER 2023-12-25 00:39 | Emergency (ER) | payer MEDICARE, OTHER ==
[~2023-12-25] VITALS: Ht 180.3 cm; Wt 99.8 kg
[~2023-12-25 00:39] MED LIST changes: +Bactrim Ds Tab1 EACH PO; +DESITIN DAILY136 GM TP; +LISI20 PO; +MELATONIN1 MG PO
[2023-12-25] MEDS ORDERED: Acetaminophen 325 MG TABLET PO ONE (00:45)
[2023-12-25 05:11] VITALS: BP 96/48
== END 2023-12-25 05:12 ==
LOC: ER 00:39
DX: S09.90XA Unspecified injury of head, initial encounter (principal); S60.322A Blister (nonthermal) of left thumb, initial encounter; F03.90 Unspecified dementia, unspecified severity, without behavioral disturbance, psychotic disturbance, mood disturbance, and anxiety; Z79.82 Long term (current) use of aspirin; Z79.899 Other long term (current) drug therapy; W18.39XA Other fall on same level, initial encounter; Y92.129 Unspecified place in nursing home as the place of occurrence of the external cause
CPT/HCPCS: 70450; 72125; 73140; 99284-25; A9270

== ENCOUNTER 2024-02-26 15:26 | Emergency (ER) | payer MEDICARE, OTHER ==
[~2024-02-26] VITALS: Ht 182.9 cm; Wt 81.7 kg
[2024-02-26 18:00] VITALS: BP 175/75
== END 2024-02-26 18:28 | disposition home or self-care (01) ==
LOC: ER 15:26
DX: S00.01XA Abrasion of scalp, initial encounter (principal); F03.90 Unspecified dementia, unspecified severity, without behavioral disturbance, psychotic disturbance, mood disturbance, and anxiety; I10 Essential (primary) hypertension; E78.5 Hyperlipidemia, unspecified; W18.30XA Fall on same level, unspecified, initial encounter; Z79.899 Other long term (current) drug therapy; Z79.82 Long term (current) use of aspirin
CPT/HCPCS: 70450; 93005; 93010; 99284-25

== ENCOUNTER 2024-03-23 00:19 | Emergency (ER) | payer MEDICARE, OTHER ==
[~2024-03-23] VITALS: Ht 180.3 cm; Wt 93.0 kg
[2024-03-23 00:52] VITALS: BP 144/59
[2024-03-23 01:35] LABS: BASOPHILS ABSOLUTE AUTO 0.04 K/mm3 (0.00-0.23); BASOPHILS PERCENT AUTO 1 % (0-2); EOSINOPHILS ABSOLUTE AUTO 0.16 K/mm3 (0.00-0.68); EOSINOPHILS PERCENT AUTO 2 % (0-6); Hematocrit 34.5 % (37.0-53.0); Hemoglobin 11.4 g/dL (13.5-17.5); IMMATURE GRAN ABSOLUTE AUTO 0.01 K/mm3 (0.00-0.10); IMMATURE GRAN PERCENT AUTO 0 % (0-1); LYMPHOCYTES ABSOLUTE AUTO 2.48 K/mm3 (0.84-5.20); LYMPHOCYTES PERCENT AUTO 34 % (21-46); MONOCYTES ABSOLUTE AUTO 0.69 K/mm3 (0.16-1.47); MONOCYTES PERCENT AUTO 9 % (4-13); Mean Corpuscular Volume 88 fL (80-100); Mean Platelet Volume 9.7 fL (9.1-12.4); NEUTROPHILS ABSOLUTE AUTO 3.93 K/mm3 (1.96-9.15); NEUTROPHILS PERCENT AUTO 54 % (41-73); Platelet Count 207 K/mm3 (150-400); RDW Coefficient Variation 13.8 % (11.7-14.2); RDW Standard Deviation 44.3 fL (35.1-46.3); Red Blood Cell Count 3.93 M/mm3 (4.30-5.90); White Blood Cell Count 7.31 K/mm3 (4.00-11.30)
[2024-03-23 02:03] LABS: Albumin, Blood 3.1 g/dL (3.4-5.0); Albumin/Globulin Ratio 0.9 (0.8-1.8); Bilirubin, Total 0.4 mg/dL (0.1-1.0); Calcium, Blood 8.6 mg/dL (8.5-10.1); Globulin, Blood 3.6 g/dL (2.2-4.0); Potassium, Blood 4.5 mmol/L (3.5-5.5); Total Protein, Blood 6.7 g/dL (6.4-8.2)
[2024-03-23 07:27] LABS: Source, Urine Clean Catch
[2024-03-23 07:52] LABS: Appearance, Urine Clear (Clear); Bilirubin, Urine Neg (Neg); Blood, Urine Neg (Neg); Color, Urine Yellow (P-Yellow); Glucose Qualitative, Urine Neg (Neg); Ketones, Urine Neg (Neg); Leukocyte Esterase, Urine Neg (Neg); Nitrite, Urine Neg (Neg); Protein, Urine Neg (Neg); Urobilinogen, Urine NORM (Normal)
== END 2024-03-23 07:20 | disposition home or self-care (01) ==
LOC: ER 00:19
PROVIDERS: Emergency Medicine
DX: F03.90 Unspecified dementia, unspecified severity, without behavioral disturbance, psychotic disturbance, mood disturbance, and anxiety (principal); Z79.899 Other long term (current) drug therapy; Z79.82 Long term (current) use of aspirin; I10 Essential (primary) hypertension; E78.5 Hyperlipidemia, unspecified
CPT/HCPCS: 71046; 80053; 81003; 85025; 99285-25

== ENCOUNTER 2024-04-01 21:30 | Emergency (ER) | payer MEDICARE, OTHER ==
[~2024-04-01] VITALS: Ht 175.3 cm; Wt 88.5 kg
[2024-04-01 21:32] VITALS: BP 121/77
[2024-04-01 22:20] LABS: BASOPHILS ABSOLUTE AUTO 0.03 K/mm3 (0.00-0.23); BASOPHILS PERCENT AUTO 1 % (0-2); EOSINOPHILS ABSOLUTE AUTO 0.07 K/mm3 (0.00-0.68); EOSINOPHILS PERCENT AUTO 1 % (0-6); Hematocrit 35.1 % (37.0-53.0); Hemoglobin 11.7 g/dL (13.5-17.5); IMMATURE GRAN ABSOLUTE AUTO 0.02 K/mm3 (0.00-0.10); IMMATURE GRAN PERCENT AUTO 0 % (0-1); LYMPHOCYTES ABSOLUTE AUTO 1.33 K/mm3 (0.84-5.20); LYMPHOCYTES PERCENT AUTO 24 % (21-46); MONOCYTES ABSOLUTE AUTO 0.75 K/mm3 (0.16-1.47); MONOCYTES PERCENT AUTO 14 % (4-13); Mean Corpuscular HGB 29.3 pg (26.0-34.0); Mean Corpuscular HGB Conc 33.3 g/dL (31.5-36.5); Mean Corpuscular Volume 88 fL (80-100); Mean Platelet Volume 9.7 fL (9.1-12.4); NEUTROPHILS ABSOLUTE AUTO 3.28 K/mm3 (1.96-9.15); NEUTROPHILS PERCENT AUTO 60 % (41-73); Platelet Count 246 K/mm3 (150-400); RDW Coefficient Variation 13.7 % (11.7-14.2); RDW Standard Deviation 44.2 fL (35.1-46.3); Red Blood Cell Count 3.99 M/mm3 (4.30-5.90); White Blood Cell Count 5.48 K/mm3 (4.00-11.30)
[2024-04-01 22:53] LABS: Albumin, Blood 3.1 g/dL (3.4-5.0); Albumin/Globulin Ratio 0.8 (0.8-1.8); Bilirubin, Total 0.2 mg/dL (0.1-1.0); Bun/Creatinine Ratio 29.1 (12.0-20.0); Calcium, Blood 8.6 mg/dL (8.5-10.1); Creatinine, Blood 1.1 mg/dL (0.60-1.20); Globulin, Blood 3.7 g/dL (2.2-4.0); Potassium, Blood 4.6 mmol/L (3.5-5.5); Total Protein, Blood 6.8 g/dL (6.4-8.2)
== END 2024-04-02 01:09 | disposition home or self-care (01) ==
LOC: ER 21:30
PROVIDERS: Emergency Medicine
DX: S40.012A Contusion of left shoulder, initial encounter (principal); W06.XXXA Fall from bed, initial encounter; I10 Essential (primary) hypertension; E78.5 Hyperlipidemia, unspecified; F03.90 Unspecified dementia, unspecified severity, without behavioral disturbance, psychotic disturbance, mood disturbance, and anxiety; Z79.82 Long term (current) use of aspirin; Z79.899 Other long term (current) drug therapy
CPT/HCPCS: 36415; 80053; 85025

== ENCOUNTER 2024-04-23 11:22 | Emergency (ER) | payer MEDICARE, OTHER ==
[~2024-04-23] VITALS: Ht 182.9 cm; Wt 113.4 kg
[2024-04-23 11:39] LABS: BASOPHILS ABSOLUTE AUTO 0.04 K/mm3 (0.00-0.23); BASOPHILS PERCENT AUTO 0 % (0-2); EOSINOPHILS ABSOLUTE AUTO 0.13 K/mm3 (0.00-0.68); EOSINOPHILS PERCENT AUTO 1 % (0-6); Hematocrit 32.5 % (37.0-53.0); Hemoglobin 10.8 g/dL (13.5-17.5); IMMATURE GRAN ABSOLUTE AUTO 0.04 K/mm3 (0.00-0.10); IMMATURE GRAN PERCENT AUTO 0 % (0-1); LYMPHOCYTES ABSOLUTE AUTO 2.71 K/mm3 (0.84-5.20); LYMPHOCYTES PERCENT AUTO 23 % (21-46); MONOCYTES ABSOLUTE AUTO 0.77 K/mm3 (0.16-1.47); MONOCYTES PERCENT AUTO 7 % (4-13); Mean Corpuscular HGB 29.3 pg (26.0-34.0); Mean Corpuscular HGB Conc 33.2 g/dL (31.5-36.5); Mean Corpuscular Volume 88 fL (80-100); Mean Platelet Volume 9.5 fL (9.1-12.4); NEUTROPHILS ABSOLUTE AUTO 8.23 K/mm3 (1.96-9.15); NEUTROPHILS PERCENT AUTO 69 % (41-73); Platelet Count 205 K/mm3 (150-400); RDW Coefficient Variation 13.7 % (11.7-14.2); RDW Standard Deviation 44.5 fL (35.1-46.3); Red Blood Cell Count 3.69 M/mm3 (4.30-5.90); White Blood Cell Count 11.92 K/mm3 (4.00-11.30)
[2024-04-23 12:10] LABS: Albumin/Globulin Ratio 0.9 (0.8-1.8); Bun/Creatinine Ratio 21.3 (12.0-20.0); Calcium, Blood 8.5 mg/dL (8.5-10.1); Creatinine, Blood 1.41 mg/dL (0.60-1.20); Globulin, Blood 3.5 g/dL (2.2-4.0); Potassium, Blood 4.3 mmol/L (3.5-5.5); Total Protein, Blood 6.5 g/dL (6.4-8.2)
[2024-04-23] MEDS ORDERED: NS 500 ML IV SCH (12:20)
[2024-04-23 13:18] LABS: Influenza A, PCR NEGATIVE (NEGATIVE); Influenza B, PCR NEGATIVE (NEGATIVE); Resp Syncytial Virus, PCR NEGATIVE (NEGATIVE); SARS-Cov-2 (COVID-19) PCR, MMC NEGATIVE (NEGATIVE)
[2024-04-23 14:15] VITALS: BP 188/75
== END 2024-04-23 15:33 | disposition home or self-care (01) ==
LOC: ER 11:22
PROVIDERS: Emergency Medicine
DX: R55 Syncope and collapse (principal); F03.90 Unspecified dementia, unspecified severity, without behavioral disturbance, psychotic disturbance, mood disturbance, and anxiety; I10 Essential (primary) hypertension; E11.42 Type 2 diabetes mellitus with diabetic polyneuropathy; Z79.82 Long term (current) use of aspirin
CPT/HCPCS: 0241U; 70450; 80053; 82947; 85025; 93005; 93010; 96360; 99285-25; J7030

== ENCOUNTER 2024-05-25 15:58 | Emergency (ER) | payer MEDICARE, OTHER ==
[2024-05-25 17:47] LABS: BASOPHILS ABSOLUTE AUTO 0.02 K/mm3 (0.00-0.23); BASOPHILS PERCENT AUTO 1 % (0-2); EOSINOPHILS ABSOLUTE AUTO 0.04 K/mm3 (0.00-0.68); EOSINOPHILS PERCENT AUTO 1 % (0-6); Hemoglobin 9.3 g/dL (13.5-17.5); IMMATURE GRAN ABSOLUTE AUTO 0.01 K/mm3 (0.00-0.10); IMMATURE GRAN PERCENT AUTO 0 % (0-1); LYMPHOCYTES ABSOLUTE AUTO 1.11 K/mm3 (0.84-5.20); LYMPHOCYTES PERCENT AUTO 25 % (21-46); MONOCYTES ABSOLUTE AUTO 0.39 K/mm3 (0.16-1.47); MONOCYTES PERCENT AUTO 9 % (4-13); Mean Corpuscular HGB 29.2 pg (26.0-34.0); Mean Corpuscular HGB Conc 32.1 g/dL (31.5-36.5); Mean Corpuscular Volume 91 fL (80-100); Mean Platelet Volume 9.9 fL (9.1-12.4); NEUTROPHILS ABSOLUTE AUTO 2.83 K/mm3 (1.96-9.15); NEUTROPHILS PERCENT AUTO 64 % (41-73); Platelet Count 214 K/mm3 (150-400); RDW Coefficient Variation 13.2 % (11.7-14.2); RDW Standard Deviation 43.8 fL (35.1-46.3); Red Blood Cell Count 3.18 M/mm3 (4.30-5.90)
[2024-05-25 17:49] LABS: Albumin, Blood 2.5 g/dL (3.4-5.0); Albumin/Globulin Ratio 0.8 (0.8-1.8); Bilirubin, Total 0.3 mg/dL (0.1-1.0); Bun/Creatinine Ratio 22.8 (12.0-20.0); Calcium, Blood 7.4 mg/dL (8.5-10.1); Creatinine, Blood 1.27 mg/dL (0.60-1.20); Globulin, Blood 3.1 g/dL (2.2-4.0); Potassium, Blood 4.4 mmol/L (3.5-5.5); Total Protein, Blood 5.6 g/dL (6.4-8.2)
[2024-05-25 18:09] LABS: Free Thyroxine 1.03 ng/dL (0.70-1.60); Magnesium, Blood 1.8 mg/dL (1.6-2.4)
[2024-05-25] MEDS ORDERED: NS 1,000 ML IV SCH (18:10)
[2024-05-25 18:11] LABS: Phosphorus, Blood 3.4 mg/dL (2.5-4.9); Thyroid Stimulating Hormone 1.84 uIU/mL (0.360-4.800)
[2024-05-25 19:11] LABS: Source, Urine Clean Catch
[2024-05-25 19:13] LABS: Appearance, Urine Clear (Clear); Bilirubin, Urine Neg (Neg); Blood, Urine 1+ (Neg); Color, Urine Yellow (P-Yellow); Glucose Qualitative, Urine Neg (Neg); Ketones, Urine Neg (Neg); Leukocyte Esterase, Urine Neg (Neg); Nitrite, Urine Neg (Neg); Protein, Urine Neg (Neg); Specific Gravity, Urine 1.015 (1.003-1.022); Urobilinogen, Urine NORM (Normal)
[2024-05-25 19:20] LABS: White Blood Cells, Urine 0-2 /hpf (0-5)
[2024-05-25 19:21] LABS: Bacteria Few /hpf; Renal Epithelial Few /hpf (0-Rare); Squamous Epithelial Cells Rare /hpf (Few)
[2024-05-25 23:12] VITALS: BP 144/66
== END 2024-05-25 23:12 | disposition home or self-care (01) ==
LOC: ER 15:58
PROVIDERS: Student in an Organized Health Care Education/Training Program
DX: I95.9 Hypotension, unspecified (principal); R00.1 Bradycardia, unspecified; F03.90 Unspecified dementia, unspecified severity, without behavioral disturbance, psychotic disturbance, mood disturbance, and anxiety; Z79.899 Other long term (current) drug therapy; Z79.82 Long term (current) use of aspirin; I10 Essential (primary) hypertension; E11.42 Type 2 diabetes mellitus with diabetic polyneuropathy
CPT/HCPCS: 51701; 70450; 71045; 80053; 81001; 83735; 84100; 84439; 84443; 84484; 85025; 99285-25; J7030